=== PATIENT | female | born 1945 | race Caucasian/White ===

== ENCOUNTER 2018-02-20 13:52 | Inpatient (IN) ==
[2018-02-20] MEDS ORDERED: 0.9 % Sodium Chloride 1,000 ML IVC ONE (14:49)
[2018-02-20] MEDS ORDERED: Ondansetron 4 MG/2 ML VIAL IVP ONE (14:49)
--- NOTE | 2018-02-20 14:54 | Emergency Department Note ---
Disposition Clinical Impression: Vomiting and diarrhea, Dehydration Urinary tract infection Qualifiers: Urinary tract infection type: acute cystitis Hematuria presence: with hematuria Qualified Code(s): N30.01 - Acute cystitis with hematuria Disposition: Admitted As Inpatient Condition: Fair Referrals: Nurys Li MD [Primary Care Provider] - Forms: ED Satisfaction Letter, Work/School Release Nausea/Vomiting/Diarrhea HPI - General Chief complaint: ED General Medical Stated complaint: "sick" Time Seen by Provider: 02/20/18 14:18 Source: patient Mode of arrival: private vehicle Limitations: no limitations Nursing Notes Reviewed: Yes Vital Signs Reviewed: Yes - History of Present Illness HPI Narrative: 72-year-old female since for evaluation of vomiting and diarrhea. Patient states her symptoms started 2 days ago. She estimates 4-5 episodes of vomiting. She estimates to watery stools. She states there is no associated abdominal pain. She is unaware of any fever or chills. She states no other complaints of runny nose, sore throat, chest pain, shortness of breath, or urinary symptoms. She denies any recent travel. She denies any recent antibiotics last 3 days. She denies any recent ill contacts. And she cannot recall any food that tasted poorly - Related Data Home Medications Medication Instructions Recorded Confirmed Meloxicam [Mobic] 15 mg PO DAILY 09/07/15 02/20/18 Oxybutynin Chloride [Ditropan Xl] 15 mg PO DAILY 09/07/15 02/20/18 Vitamin B Complex [B Complex] 1 each PO DAILY 09/19/15 02/20/18 Metoprolol [Lopressor] 50 mg PO BID 10/17/15 02/20/18 Aspirin [Lo-Dose Aspirin EC] 81 mg PO DAILY 07/28/16 02/20/18 Furosemide [Lasix] 80 mg PO DAILY 12/31/16 02/20/18 Oxygen 2 l NS HS 03/10/17 02/20/18 Omeprazole [PriLOSEC] 20 mg PO DAILY 06/23/17 02/20/18 Lisinopril [Zestril] 40 mg PO QAM 10/08/17 02/20/18 Previous Rx's Medication Instructions Recorded Albuterol Sulfate [Albuterol 2 puff IH Q4HR PRN #1 inhaler 07/31/16 Inhaler] Potassium Chloride 20 meq PO DAILY #30 tab.er.prt 07/31/16 Anastrozole [Arimidex] 1 mg PO DAILY #90 tablet 05/28/17 Zolpidem [Ambien] 5 mg PO HS PRN #30 tablet 06/23/17 Allergies Allergy/AdvReac Type Severity Reaction Status Date / Time cephalexin [From Keflex] Allergy Rash Verified 02/20/18 14:11 atorvastatin [From Lipitor] AdvReac Muscle Pain Verified 02/20/18 14:11 nifedipine [From Procardia] AdvReac Blurry Verified 02/20/18 14:11 Vision Review of Systems: Constitutional: [Negative for fever and chills.] HENT: [Negative for congestion.] Eyes: [Negative for discharge.] Respiratory: [Negative for shortness of breath.] Cardiovascular: [Negative for chest pain.] Gastrointestinal: See history of present illness Endocrine: [Negative for excessive thirst,urination] Genitourinary: [Negative for dysuria and frequency.] Musculoskeletal: [Negative for myalgias and arthralgias.] Skin: [Negative for rash.] Neurological: [Negative for dizziness, localized weakness and headaches.] Psychiatric/Behavioral: [Negative for nervous/anxious.] All other systems reviewed and are negative. Past Medical History - Past Medical History Attestation: Yes The following information was validated with the patient. 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 . The patient appears , mildly ill but nontoxic. HENT: Head: Normocephalic and atraumatic. Right Ear: External ear normal. Left Ear: External ear normal. Nose: Nose normal. Mouth/Throat: Oropharynx is clear and mucous membranes show mild dehydration Eyes: Conjunctivae and EOM are normal. Pupils are equal, round, and reactive to light. Right eye exhibits [no] discharge. Left eye exhibits [no] discharge. Neck: Trachea is midline, normal range of motion and [phonation normal]. Neck supple. Cardiovascular: [Regular rhythm], S1 normal, S2 normal, normal heart sounds and intact distal pulses. Exam reveals no gallop and no friction rub. No murmur heard. [Capillary refill is brisk.] [Peripheral pulses are 2+] Pulmonary/Chest: Effort [normal] No stridor. [No] tachypnea. [No] respiratory distress. There are [no] decreased breath sounds. [There no wheezes, no rhonchi , or rales.] Abdominal: Soft. Bowel sounds are hyperactive. There exhibits [no] distension and [no] mass. There is no hepatosplenomegaly. There is no localized or generalized tenderness, [no] CVA tenderness. There is [no rigidity, no rebound, no guarding]. Musculoskeletal: Normal range of motion of uninvolved extremities. There exhibits [no edema]. [ ] Neurological: Patient is alert. Patient displays no atrophy and no tremor. No cranial nerve deficit and exhibits normal muscle tone. Coordination normal grossly. Skin: Skin is warm and dry. No erythema. No rash noted. Psychiatric: Patient has a normal mood and affect. Course Course Narrative: Patient was discussed with Dr. Samano, hospitalist, who will accept the patient for admission here at [facility]. Vital Signs Temperature 97.9 F 02/20/18 14:08 Pulse Rate 96 02/20/18 14:08 Respiratory Rate 16 02/20/18 14:08 Blood Pressure 102/58 02/20/18 14:08 O2 Sat by Pulse Oximetry 93 02/20/18 14:08 Temperature 97.9 F 02/20/18 14:08 Pulse Rate 96 02/20/18 14:08 Respiratory Rate 16 02/20/18 14:08 Blood Pressure 102/58 02/20/18 14:08 O2 Sat by Pulse Oximetry 93 02/20/18 14:08 Oxygen Delivery Oxygen Delivery Room Air Nausea/Vomiting/Diarrhea - MDM Narrative Medical decision making narrative: Differential diagnosis includes ACUTE APPENDICITIS, CLOSTRIDIUM DIFFICILE INFECTION, DIVERTICULITIS, TRAVELERS DIARRHEA, BLEEDING STOMACH ULCER, OR EBOLA INFECTION. SEPSIS FROM PYELONEPHRITIS, SEXUALLY TRANSMIITED DISEASES, HEMORHAGGING OVARIAN CYST, OVARIAN-TUBAL ABSCESS, - Lab Data Lab results reviewed: Yes I reviewed the patient's lab results. Result diagrams: 02/20/18 15:10 02/20/18 15:10 Lab Results 02/20/18 02/20/18 02/20/18 Range/Units 14:57 15:10 15:10 WBC 31.1 H* (4.3-11.1) K/mcL RBC 4.34 (3.82-4.97) M/mcL Hgb 12.6 (11.5-15.4) g/dL Hct 38.5 (35.3-44.9) % MCV 88.7 (83.0-100.0) fL MCH 29.0 (28.0-33.3) pg MCHC 32.7 (31.6-35.5) g/dL RDW 14.0 (11.5-14.5) % Plt Count 229 (140-400) K/mcL MPV 11.1 (9.4-12.4) fL Immature Gran % 2.8 (0-4) % Seg Neutrophils % 90.0 % Lymphocytes % 2.1 % Monocytes % 4.7 % Eosinophils % 0.0 % Basophils % 0.4 % Neutrophils # 28.0 H (1.6-8.9) K/mcL Lymphocytes # 0.7 (0.6-4.6) K/mcL Monocytes # 1.5 H (0.0-1.3) K/mcL Eosinophils # 0.0 (0.0-0.6) K/mcL Basophils # 0.1 (0.0-0.2) K/mcL Platelet Estimate Normal (Normal) Sodium 134 L (136-145) mEq/L Potassium 3.9 (3.5-5.1) mEq/L Chloride 96 L (98-107) mEq/L Carbon Dioxide 29 (23-29) mEq/L BUN 35 H (8-23) mg/dL Creatinine 1.93 H (0.60-1.20) mg/dL Est GFR ( Amer) 31 L (> 60) Est GFR (Non-Af Amer) 26 L (> 60) BUN/Creatinine Ratio 18 (6-26) Glucose 149 H (70-105) mg/dL Calculated Osmolality 289 (280-300) Lactic Acid (0.5-2.2) mmol/L Calcium 9.2 (8.6-10.3) mg/dL Total Bilirubin 1.0 (0.3-1.0) mg/dL AST 27 (13-39) Units/L ALT 11 (7-52) Units/L Alkaline Phosphatase 70 (34-104) Units/L Serum Total Protein 6.3 L (6.4-8.9) g/dL Albumin 3.1 L (3.5-5.7) g/dL Globulin 3.2 (2.4-3.5) g/dL Albumin/Globulin Ratio 1.0 L (1.1-2.2) Urine Color Yellow (Yellow) Urine Clarity Slightly Cloudy A (Clear) Urine pH 5.0 (5.0-8.0) pH Units Ur Specific [place] 1.025 (1.010-1.025) Urine Protein 100 H (Neg-Trace) mg/dL Urine Glucose (UA) Normal (Normal) mg/dL Urine Ketones Trace H (Negative) mg/dL Urine Blood Large H (Negative) Urine Nitrite Negative (Negative) Urine Bilirubin Small H (Negative) Urine Urobilinogen Normal (Normal) mg/dL Ur Leukocyte Esterase Moderate H (Negative) Urine Microscopic RBC TNTC H (0-3) per hpf Urine Microscopic WBC TNTC H (0-3) per hpf Amorphous Sediment Moderate H (Few) Urine Bacteria Many H (None-Few) per hpf Ur Culture Indicated? YES A (NO) 02/20/18 Range/Units 16:18 WBC (4.3-11.1) K/mcL RBC (3.82-4.97) M/mcL Hgb (11.5-15.4) g/dL Hct (35.3-44.9) % MCV (83.0-100.0) fL MCH (28.0-33.3) pg MCHC (31.6-35.5) g/dL RDW (11.5-14.5) % Plt Count (140-400) K/mcL MPV (9.4-12.4) fL Immature Gran % (0-4) % Seg Neutrophils % % Lymphocytes % % Monocytes % % Eosinophils % % Basophils % % Neutrophils # (1.6-8.9) K/mcL Lymphocytes # (0.6-4.6) K/mcL Monocytes # (0.0-1.3) K/mcL Eosinophils # (0.0-0.6) K/mcL Basophils # (0.0-0.2) K/mcL Platelet Estimate (Normal) Sodium (136-145) mEq/L Potassium (3.5-5.1) mEq/L Chloride (98-107) mEq/L Carbon Dioxide (23-29) mEq/L BUN (8-23) mg/dL Creatinine (0.60-1.20) mg/dL Est GFR ( Amer) (> 60) Est GFR (Non-Af Amer) (> 60) BUN/Creatinine Ratio (6-26) Glucose (70-105) mg/dL Calculated Osmolality (280-300) Lactic Acid 2.0 (0.5-2.2) mmol/L Calcium (8.6-10.3) mg/dL Total Bilirubin (0.3-1.0) mg/dL AST (13-39) Units/L ALT (7-52) Units/L Alkaline Phosphatase (34-104) Units/L Serum Total Protein (6.4-8.9) g/dL Albumin (3.5-5.7) g/dL Globulin (2.4-3.5) g/dL Albumin/Globulin Ratio (1.1-2.2) Urine Color (Yellow) Urine Clarity (Clear) Urine pH (5.0-8.0) pH Units Ur Specific [place] (1.010-1.025) Urine Protein (Neg-Trace) mg/dL Urine Glucose (UA) (Normal) mg/dL Urine Ketones (Negative) mg/dL Urine Blood (Negative) Urine Nitrite (Negative) Urine Bilirubin (Negative) Urine Urobilinogen (Normal) mg/dL Ur Leukocyte Esterase (Negative) Urine Microscopic RBC (0-3) per hpf Urine Microscopic WBC (0-3) per hpf Amorphous Sediment (Few) Urine Bacteria (None-Few) per hpf Ur Culture Indicated? (NO) - Radiology Data Radiology results reviewed: Yes I reviewed the patient's radiology results. XR/XR acute abdominal series IMPRESSION: No acute cardiopulmonary disease. Mild cardiomegaly and central vascular congestion with no overt failure. Nonspecific abdominal bowel gas pattern.
[2018-02-20 15:09] LABS: Bilirubin,Urine Small (Negative); Blood,Urine Large (Negative); Clarity,Urine Slightly Cloudy (Clear); Color,Urine Yellow (Yellow); Glucose,Urine (UA) Normal (Normal); Ketones,Urine Trace mg/dL (Negative); Leukocyte Esterase,Urine Moderate (Negative); Nitrite,Urine Negative (Negative); Protein,Urine 100 mg/dL (Neg-Trace); Specific Gravity,Urine 1.025 (1.010-1.025); Urobilinogen,Urine Normal (Normal)
[2018-02-20 15:16] LABS: Basophils # 0.1 K/mcL (0.0-0.2); Basophils % 0.4 %; Hematocrit 38.5 % (35.3-44.9); Hemoglobin 12.6 g/dL (11.5-15.4); Immature Granulocytes % 2.8 % (0-4); Lymphocytes % 2.1 %; Mean Corpuscular HGB Conc 32.7 g/dL (31.6-35.5); Mean Corpuscular Volume 88.7 fL (83.0-100.0); Mean Platelet Volume 11.1 fL (9.4-12.4); Monocytes # 1.5 K/mcL (0.0-1.3); Monocytes % 4.7 %; Platelet Count 229 K/mcL (140-400); Red Blood Count 4.34 M/mcL (3.82-4.97)
[2018-02-20 15:16] LABS: Amorphous Sediment,Urine Moderate (Few); Bacteria,Urine Many per hpf (None-Few); RBC,Urine TNTC per hpf (0-3); WBC,Urine TNTC per hpf (0-3)
[2018-02-20 15:33] LABS: Lymphocytes # 0.7 K/mcL (0.6-4.6)
[2018-02-20 15:34] LABS: Platelet Estimate Normal (Normal)
[2018-02-20 15:36] LABS: Albumin 3.1 g/dL (3.5-5.7); Calcium 9.2 mg/dL (8.6-10.3); Globulin 3.2 g/dL (2.4-3.5); Potassium 3.9 mEq/L (3.5-5.1); Total Protein 6.3 g/dL (6.4-8.9)
[2018-02-20] MEDS ORDERED: MetroNIDAZOLE 500 MG/100 ML 500 MG/100 ML BAG IVPB ONE (15:54)
[2018-02-20 17:09] LABS: Amylase < 10 Units/L (29-103); Lipase 5 Units/L (11-82)
[2018-02-20] MEDS ORDERED: Ondansetron 4 MG/2 ML VIAL IVP PRN (17:24)
[2018-02-20] MEDS ORDERED: 0.9 % Sodium Chloride 1,000 ML IVC SCH (17:30)
--- NOTE | 2018-02-20 20:22 | Internal Med History&Physical ---
Date of Encounter: 02/20/18 Time of Encounter: 20:27 Assessment and Plan (1) Urinary tract infection Current visit: Yes Status: Acute We will rehydrate her, monitor clinically, treat empirically with ciprofloxacin and await culture and sensitivity results. She will be admitted observation status and hopefully with improvement she may be discharged quickly. Addendum: I am concerned about her change in mental status and tachypnea. Given her left basilar rales and tachypnea, I am going to repeat a chest x-ray. If she continues with mental status changes, we may need to consider transferring to a more advanced level of care. Qualifiers: Urinary tract infection type: acute cystitis Hematuria presence: with hematuria Qualified Code(s): N30.01 - Acute cystitis with hematuria (2) Hypertension Current visit: No Status: Acute We will continue home regimen as indicated and watch. Qualifiers: Hypertension type: essential hypertension Qualified Code(s): I10 - Essential (primary) hypertension (3) GERD (gastroesophageal reflux disease) Current visit: No Status: Acute Clinically stable. Qualifiers: Esophagitis presence: esophagitis presence not specified Qualified Code(s) : K21.9 - Gastro-esophageal reflux disease without esophagitis (4) Diet-controlled diabetes mellitus Current visit: No Status: Acute Will control hyperglycemia with sliding scale insulin and follow. (5) Vomiting and diarrhea Current visit: Yes Status: Acute As above, will rehydrate and follow clinically. Could be related to UTI or could be acute gastroenteritis or other etiology. (6) Dehydration Current visit: Yes Status: Acute As above, will rehydrate and follow. (7) Decreased activity tolerance Current visit: No Status: Chronic (8) History of cancer of left breast Current visit: No Status: Chronic (9) Azotemia Current visit: Yes Status: Acute I am unsure as to the chronicity so will follow with rehydration. (10) Pulmonary hypertension Current visit: No Status: Chronic Probably related to sleep apnea. (11) Sleep apnea Current visit: No Status: Suspected Noncompliant with CPAP. She will be maintained on oxygen, for now, and we will carefully monitor her oxygen. Qualifiers: Sleep apnea type: unspecified type Qualified Code(s): G47.30 - Sleep apnea , unspecified Internal Medicine - H&P: HPI Chief complaint: Nausea vomiting and diarrhea. Admitted From: Home Plans for Post Hospital Care: Home History of present illness: Ms. Singh is a 72 year old female with a 2 day history of vomiting and diarrhea. She has had emesis about 5 times. She has had 2 episodes of diarrhea , as well. There is no fever chills or sweats. She has had no abdominal pain or any changes in her bowel color and no coffee-ground emesis or hematemesis. She states that she is currently still hot.. She has not been exposed to anyone who is ill with similar symptoms nor antibiotics. History was reviewed and she was very brief to answer. She is more interested in trying to sit up because she is hot and needing to set up. She states that she does have sleep apnea but she does not tolerate CPAP and "it does not help, anyway. " She desaturated to 88% upon arrival to the floor, on 1 L of oxygen by nasal cannula. This was increased at 2 L/m. She denies urinary symptoms but has had decreased urinary output. Past Med Surg Social Fam HX - Past Medical History Medical history: cancer, diabetes, GERD, hyperlipidemia, hypertension, kidney stones, other Psychiatric history: no psych history - Past Surgical History Surgical History: breast surgery, cholecystectomy, ureteral stent - Social History Smoking Status: Never smoker Smokeless Tobacco Status: No Alcohol use: none Drug use: none - Family History Father Living Status: Hx Family Cancer: Yes (pancreatic) Mother Living Status: Hx Family Cancer: Yes (Thyroid cancer) Hx Family Neuromuscular Disorders: Yes (CVA) Hx Family Neurologic Disorders: Yes (CVA) Internal Medicine - H&P: Meds Meloxicam [Mobic] 15 mg PO DAILY 09/07/15 [History] Oxybutynin Chloride [Ditropan Xl] 15 mg PO DAILY 09/07/15 [History] Vitamin B Complex [B Complex] 1 each PO DAILY 09/19/15 [History] Metoprolol [Lopressor] 50 mg PO BID 10/17/15 [History] Aspirin [Lo-Dose Aspirin EC] 81 mg PO DAILY 07/28/16 [History] Albuterol Sulfate [Albuterol Inhaler] 2 puff IH Q4HR PRN #1 inhaler 07/31/16 [Rx ] Potassium Chloride 20 meq PO DAILY #30 tab.er.prt 07/31/16 [Rx] Furosemide [Lasix] 80 mg PO DAILY 12/31/16 [History] Oxygen 2 l NS HS 03/10/17 [History] Anastrozole [Arimidex] 1 mg PO DAILY #90 tablet 05/28/17 [Rx] Omeprazole [PriLOSEC] 20 mg PO DAILY 06/23/17 [History] Zolpidem [Ambien] 5 mg PO HS PRN #30 tablet 06/23/17 [Rx] Lisinopril [Zestril] 40 mg PO QAM 10/08/17 [History] 3 Allergy/AdvReac Type Severity Reaction Status Date / Time cephalexin [From Keflex] Allergy Rash Verified 02/20/18 14:11 atorvastatin [From Lipitor] AdvReac Muscle Pain Verified 02/20/18 14:11 nifedipine [From Procardia] AdvReac Blurry Verified 02/20/18 14:11 Vision All Systems PM: A 10-system review of systems was performed and is negative for pertinent findings except as documented above in the HPI. - Constitutional Vitals: Temp Pulse Resp BP Pulse Ox 98.4 F 102 18 145/62 94 02/20/18 18:21 02/20/18 18:21 02/20/18 18:21 02/20/18 18:21 02/20/18 18:21 Exam: Examination: (Except as mentioned above): General: In no apparent distress, alert and oriented 3. However, she seems uncomfortable and is having some restlessness. On confrontation, she demonstrates asterixis. She is on oxygen at 2 L. She is incontinent of urine. Head: Atraumatic and normocephalic. Eyes: Extraocular muscles are intact, pupils equal round and reactive to light and accommodation. Sclerae anicteric. Ears: External ears are normal to inspection and hearing is grossly normal. Nose: Patent without lesion noted. Mouth: No intraoral lesions seen. Dentition is unremarkable. Neck: Supple with trachea midline. There is no thyromegaly or adenopathy and carotids are 2+ without bruit heard. Respiratory: No use of accessory muscles. She has tachypnea and is noted to have rales at the left base. These were not noted on previous exam.. Normal airflow. Cardiovascular: Regular rate and rhythm without murmur appreciated. Abdomen: Bowel sounds are normal. No hepatosplenomegaly masses or tenderness. Obese and therefore difficult to palpate deeply. Extremities: No cyanosis clubbing or edema. Neurological: A and O 3. See comments above. Cranial nerves II through XII are intact. No focal deficits and no abnormal movements or postures. Skin: Warm and non-diaphoretic with no lesions noted. Rather marked fungal intertrigo, bilaterally. Breasts, pelvic and rectal: Not examined. Internal Med - H&P Results - Labs CBC & Chem 7: 02/20/18 15:10 02/20/18 15:10
[2018-02-20] MEDS ORDERED: NON-FORMULARY MEDICATION 1 EACH EACH (Oxygen [Oxygen] 2 L) NS SCH (21:00)
[2018-02-20 21:42] LABS: Hematocrit 38.2 % (35.3-44.9); Hemoglobin 12.5 g/dL (11.5-15.4); Mean Corpuscular HGB Conc 32.7 g/dL (31.6-35.5); Mean Corpuscular Hemoglobin 29.3 pg (28.0-33.3); Mean Corpuscular Volume 89.7 fL (83.0-100.0); Platelet Count 211 K/mcL (140-400); Red Blood Count 4.26 M/mcL (3.82-4.97); Red Cell Distribution Width 14.2 % (11.5-14.5)
[2018-02-20 21:53] LABS: Neutrophils # 29.3 K/mcL (1.6-8.9); Platelet Estimate Normal (Normal)
[2018-02-20 22:08] LABS: Calcium 8.6 mg/dL (8.6-10.3); Potassium 3.8 mEq/L (3.5-5.1)
[2018-02-20] MEDS: metroNIDAZOLE 500 MG TABLET PO SCH (23:39)
[2018-02-20] MEDS: Nystatin POWDER 30 GM BOTTLE TP SCH (23:40)
[2018-02-20] MEDS: *HR* Enoxaparin 40 MG/0.4 ML SYRINGE SQ SCH (23:40)
[2018-02-21 01:19] LABS: Lymphocytes # 0.1 K/mcL (0.6-4.6); Lymphocytes % 0.4 %
[2018-02-21] MEDS ORDERED: 0.9 % Sodium Chloride 1,000 ML ONE (02:16)
[2018-02-21] MEDS: 0.9 % Sodium Chloride 1,000 ML IVC SCH ×2 (03:12→13:05)
[2018-02-21] MEDS ORDERED: *HR* Enoxaparin 30 MG/0.3 ML SYRINGE SQ SCH (07:00)
[2018-02-21 08:56] LABS: Basophils # 0.1 K/mcL (0.0-0.2); Basophils % 0.3 %; Hematocrit 38.3 % (35.3-44.9); Immature Granulocytes % 2.1 % (0-4); Lymphocytes # 0.5 K/mcL (0.6-4.6); Lymphocytes % 1.6 %; Mean Corpuscular HGB Conc 31.3 g/dL (31.6-35.5); Mean Corpuscular Hemoglobin 29.2 pg (28.0-33.3); Mean Corpuscular Volume 93.2 fL (83.0-100.0); Mean Platelet Volume 11.6 fL (9.4-12.4); Monocytes # 1.3 K/mcL (0.0-1.3); Monocytes % 4.1 %; Neutrophils # 28.3 K/mcL (1.6-8.9); Platelet Count 204 K/mcL (140-400); Red Blood Count 4.11 M/mcL (3.82-4.97); Red Cell Distribution Width 14.5 % (11.5-14.5); Segmented Neutrophils % 91.9 %
[2018-02-21] MEDS ORDERED: Aspirin Enteric Coated 81 MG Tablet PO SCH (09:00)
[2018-02-21] MEDS ORDERED: Anastrozole 1 MG TABLET PO SCH (09:00)
[2018-02-21] MEDS ORDERED: Vitamin B Complex/Vit C/Vit E 1 EACH TABLET PO SCH (09:00)
[2018-02-21 09:09] LABS: Platelet Estimate Normal (Normal)
[2018-02-21 09:16] LABS: Calcium 8.4 mg/dL (8.6-10.3); Potassium 4.4 mEq/L (3.5-5.1)
[2018-02-21] MEDS: *HR* Enoxaparin 40 MG/0.4 ML SYRINGE SQ SCH (11:02)
[2018-02-21] MEDS: Nystatin POWDER 30 GM BOTTLE TP SCH ×3 (11:50→22:06)
[2018-02-21] MEDS: metroNIDAZOLE 500 MG TABLET PO SCH ×3 (11:50→22:06)
[2018-02-21] MEDS: Lisinopril 20 MG TABLET PO SCH ×2 (11:56→13:05)
[2018-02-21] MEDS ORDERED: Acetaminophen 325 MG TABLET PO PRN (12:38)
--- NOTE | 2018-02-21 14:14 | Internal Med Progress Note ---
Date of Encounter: 02/21/18 Time of Encounter: 14:13 - Assessment and plan (1) Urinary tract infection Current Visit: Yes Status: Acute Assessment and plan: Will try to broaden antibiotic spectrum given her positive blood cultures. I spoke with pharmacy at length. Bactrim and Macrodantin are not indicated given her renal insufficiency. Pharmacy is to call me back with suggestions regarding management. Qualifiers: Urinary tract infection type: acute cystitis Hematuria presence: with hematuria Qualified Code(s): N30.01 - Acute cystitis with hematuria (2) Hypertension Current Visit: No Status: Acute Assessment and plan: Stable. Qualifiers: Hypertension type: essential hypertension Qualified Code(s): I10 - Essential (primary) hypertension (3) GERD (gastroesophageal reflux disease) Current Visit: No Status: Acute Assessment and plan: Clinically stable. Qualifiers: Esophagitis presence: esophagitis presence not specified Qualified Code(s) : K21.9 - Gastro-esophageal reflux disease without esophagitis (4) Diet-controlled diabetes mellitus Current Visit: No Status: Acute Assessment and plan: We will continue to follow. (5) Vomiting and diarrhea Current Visit: Yes Status: Acute Assessment and plan: Improved. (6) Dehydration Current Visit: Yes Status: Acute Assessment and plan: Seems to have improved. She has worsening renal function, however, so we will continue fluids as long as she does not have congestive heart failure eye x- ray. Have requested a follow-up x-ray to compare. Should she have vascular congestion, will resume IV Lasix and follow clinically. (7) Decreased activity tolerance Current Visit: No Status: Chronic Assessment and plan: I believe this is related to a urinary tract infection. (8) History of cancer of left breast Current Visit: No Status: Chronic Assessment and plan: Not currently treating. (9) Azotemia Current Visit: Yes Status: Acute Assessment and plan: Worsening. We will follow regularly. (10) Pulmonary hypertension Current Visit: No Status: Chronic Assessment and plan: I spoke at length with and about her need for CPAP and treatment for this. (11) Sleep apnea Current Visit: No Status: Suspected Assessment and plan: See above. Qualifiers: Sleep apnea type: unspecified type Qualified Code(s): G47.30 - Sleep apnea , unspecified - Time Spent With Patient Greater than 35 minutes - Subjective Interval history: Patient states that she has no issues. However, she answers in non-sequiturs and family states that she is clearly "not herself." She denies abdominal pain, shortness of breath, other discomfort. She is tachypneic in does not acknowledge this. Nursing reports that her blood cultures were positive in the emergency room for one bottle of Escherichia coli and sensitivities will not be available for 2 days. I explained the clinical situation, some suggestions of sepsis, need for careful antibiotic and monitor for mental status changes to family including and daughters as well as some grandchildren. notes that she had similar mental status changes last fall when she had an infection but she was not "this bad." Nursing notes that her Honobia score is 3. - Constitutional Vitals: Temp Pulse Resp BP Pulse Ox 101.7 F H 84 20 106/52 97 02/21/18 12:34 02/21/18 12:34 02/21/18 12:34 02/21/18 12:34 02/21/18 12:34 Exam: Examination: (Except as mentioned above): General: In no apparent distress. Alert and oriented 3. Nondiaphoretic. Head: Atraumatic and normocephalic. Respiratory: No use of accessory muscles, currently, but nursing notes that she was, earlier. She is moderately tachypneic. She has left basilar rales. Normal airflow. Cardiovascular: Regular rate and rhythm without murmur appreciated. She has a heart rate of about 100 and she was more tachycardic earlier, about 110, per record. Abdomen: Bowel sounds are normal. No hepatosplenomegaly mass or tenderness appreciated. Obese and therefore difficult to palpate deeply. Extremities: No cyanosis clubbing or edema. Skin: Warm and non-diaphoretic with no new lesions noted. Internal Medicine: Result - Labs CBC & Chem 7: 02/21/18 08:45 02/21/18 08:45 Labs: Short CBC 02/20/18 02/21/18 Range/Units 21:30 08:45 WBC 29.9 H 30.8 H* (4.3-11.1) K/mcL Hgb 12.5 12.0 (11.5-15.4) g/dL Hct 38.2 38.3 (35.3-44.9) % Plt Count 211 204 (140-400) K/mcL Neutrophils # 29.3 H 28.3 H (1.6-8.9) K/mcL BMP 02/20/18 02/21/18 21:30 08:45 Sodium 134 L 133 L Potassium 3.8 4.4 Chloride 97 L 98 Carbon Dioxide 28 27 BUN 38 H 45 H Creatinine 2.03 H 2.65 H Glucose 135 H 149 H Calcium 8.6 8.4 L - Impressions Impressions Chest X-Ray 02/20/18 21:07 IMPRESSION: 1. Findings suggestive of cardiomegaly and pulmonary venous congestion. D/ / 02/20/2018 22:11:22 Steve Denny MD / romana Interpreting Provider: Steve Denny MD Consult Discharge Plan - Plan Referrals: Nurys Li MD [Primary Care Provider] -
[2018-02-21 14:53] LABS: Acinetobacter baumannii by PCR Not Detected (Not Detect); Candida albicans by PCR Not Detected (Not Detect); Candida glabrata by PCR Not Detected (Not Detect); Candida krusei by PCR Not Detected (Not Detect); Candida parapsilosis by PCR Not Detected (Not Detect); Candida tropicalis by PCR Not Detected (Not Detect); Enterococcus by PCR Not Detected (Not Detect); Escherichia coli by PCR ***DETECTED*** (Not Detect); Klebsiella oxytoca by PCR Not Detected (Not Detect); Klebsiella pneumoniae by PCR Not Detected (Not Detect); Pseudomonas aeruginosa by PCR Not Detected (Not Detect); Serratia marcescens by PCR Not Detected (Not Detect); Staphylococcus aureus by PCR Not Detected (Not Detect); Streptococcus agalactiae(B)PCR Not Detected (Not Detect); Streptococcus by PCR Not Detected (Not Detect); Streptococcus pneumoniae PCR Not Detected (Not Detect); Streptococcus pyogenes (A) PCR Not Detected (Not Detect); blaKPC Carbapenem-Resist Gene Not Detected (Not Detect); mecA Methicillin-Resist Gene Not Detected (Not Detect); vanA/B Vancomycin-Resist Genes Not Detected (Not Detect)
[2018-02-21] MEDS ORDERED: Levofloxacin 500 MG/100 ML 500 MG/100 ML BAG IVPB SCH ×2 (17:00→17:30)
[2018-02-21] MEDS ORDERED: Amoxicillin/Clavulanate 500 MG TABLET PO SCH (17:00)
[2018-02-21] MEDS ORDERED: Furosemide 40 MG/4 ML VIAL IVP SCH ×2 (17:46→21:00)
[2018-02-21] MEDS ORDERED: Acetaminophen 650 MG RECTAL SUPP RC PRN (21:49)
--- NOTE | 2018-02-22 00:45 | Internal Med Progress Note ---
<Linda George - Last Filed: 02/22/18 02:12> Date of Encounter: 02/22/18 Time of Encounter: 00:15 (stayed with pt for an hour) - Assessment and plan (1) Altered mental status Status: Acute Assessment and plan: plan to transfer to r/o worsening sepsis tia vs cva ABG to r/o co2 retention CT scan to r/o cva ct grossly negative and ABG shows respiratory acidosis Spoke with Dr Sy at [facility] and declined admission and recommended transfer to another facility due to staffing spoke with family and the requested [facility] Critical care Note 35 mins due to high probability of life threatening deterioration due to underlying illness and arranging transfer to another health care facility and talking with accepting physicians This excludes separately reportable procedures pt given fluid bolus and bp improving and with bi pap pt appears to be resting more comfortably awaiting repeat gas when reviewed there still appear to be mixed and family is asking that we do not intubate they feel that she is more alert and responsive. Qualifiers: Altered mental status type: unspecified Qualified Code(s): R41.82 - Altered mental status, unspecified - Time Spent With Patient Greater than 35 minutes (pt aletered mental status talking to [facility] and managing abnormal labs) - Subjective Interval history: altered mental status - Constitutional Vitals: Temp Pulse Resp BP Pulse Ox 99.5 F 79 40 94/52 94 02/21/18 23:58 02/21/18 23:58 02/21/18 23:58 02/21/18 23:58 02/21/18 23:58 General appearance: Present: A&O X 0, mild distress - Head Head exam: Present: atraumatic, normal inspection, normocephalic - Eye Eye exam: Present: EOMI, normal appearance, PERRL Pupils: Present: PERRL - ENT ENT exam: Present: mucous membranes moist, normal exam, normal external ear exam , normal oropharynx, TM's normal bilaterally - Neck Neck exam general surgery: Present: full ROM, normal inspection. Absent: lymphadenopathy, nuchal rigidity - Respiratory Respiratory exam: Present: decreased breath sounds, prolonged expiratory phase - Cardiovascular Cardiovascular exam: Present: RRR - GI/Abdominal GI/Abdominal exam: Present: diminished bowel sounds, distended, soft, no peritoneal signs. Absent: mass, rebound - Extremities Exam Extremities exam: Present: normal capillary refill, normal inspection ( withdrawls to pain), pedal edema (mild), warm, radial pulses palpable and symmetrical. Absent: tenderness - Back Exam Back exam: Absent: muscle spasm - Neurological Exam Neurological exam: Present: alert, altered, CN II-XII intact Additional comments: withdrawls to pain - Psychiatric Psychiatric exam: Present: flat affect - Skin Skin exam: Present: dry, normal color, warm Internal Medicine: Result - Labs CBC & Chem 7: 02/21/18 08:45 02/21/18 08:45 - ABG Interpretation Interpretation: ABG interpreted by me ABG results: repeat gas 7.19 PAco2 66.7 PAo2 54 25,6 Hco3 sats 78.7 still appears to be mixed venous origin Interpretation: respiratory acidosis, venous blood gas (mixed) Additional comments: Ph 7.1 PaCO2 70 PaO2 40 HCO3 23 sats 66% suspect mixed due to sat not matching pulse ox - Pulse Oximetry Interpretation Digit-Finger Pulse Oximetry Readin (on bipap 12/8) Actions taken: placed on BiPAP - EKG Interpretation EKG Interpreted by Myself: Yes (sinus arrthmia occasiional P wave notes possible afib) Rate: tachycardia - Diagnostic Studies CT scan - head Status: image reviewed by me, pending Additional comments: No gross infarct or bleed noted on ct interpreted by myself without the assistance of radiology chronic changes no acute findings per radiology Consult Discharge Plan - Plan Referrals: Nurys Li MD [Primary Care Provider] - <Torsten Samano - Last Filed: 02/24/18 14:13> Date of Encounter: 02/24/18 - Assessment and plan (1) Urinary tract infection Status: Acute Qualifiers: Urinary tract infection type: acute cystitis Hematuria presence: with hematuria Qualified Code(s): N30.01 - Acute cystitis with hematuria (2) Hypertension Status: Acute Qualifiers: Hypertension type: essential hypertension Qualified Code(s): I10 - Essential (primary) hypertension (3) GERD (gastroesophageal reflux disease) Status: Acute Qualifiers: Esophagitis presence: esophagitis presence not specified Qualified Code(s) : K21.9 - Gastro-esophageal reflux disease without esophagitis (4) Diet-controlled diabetes mellitus Status: Acute (5) Vomiting and diarrhea Status: Acute (6) Dehydration Status: Acute (7) Decreased activity tolerance Status: Chronic (8) History of cancer of left breast Status: Chronic (9) Azotemia Status: Acute (10) Pulmonary hypertension Status: Chronic (11) Sleep apnea Status: Suspected Qualifiers: Sleep apnea type: unspecified type Qualified Code(s): G47.30 - Sleep apnea , unspecified - Constitutional Vitals: Temp Pulse Resp BP Pulse Ox 99.1 F 121 34 96/58 97 02/22/18 03:24 02/22/18 03:24 02/22/18 03:24 02/22/18 03:24 02/22/18 03:24 Internal Medicine: Result - Labs CBC & Chem 7: 02/21/18 08:45 02/21/18 08:45 - ABG Interpretation ABG results: ABG ABG pH 7.19 pH Units (7.32-7.45) L* 02/22/18 02:25 ABG pCO2 67 mmHg (35-45) H 02/22/18 02:25 ABG pO2 54 mmHg (85-104) L 02/22/18 02:25 ABG O2 Saturation 79 % (95-98) L 02/22/18 02:25
[2018-02-22 01:06] LABS: ABG Base Excess -2 mEq/L (-2 to 3); ABG HCO3 28 mEq/L (21-27); ABG Oxygen Saturation 66 % (95-98); ABG PCO2 77 mmHg (35-45); ABG PH 7.17 pH Units (7.32-7.45); ABG PO2 44 mmHg (85-104); ABG TCO2 31 mEq/L (20-26)
[2018-02-22] MEDS ORDERED: 0.9 % Sodium Chloride 1,000 ML IVC ONE (01:30)
[2018-02-22 02:34] LABS: ABG Base Excess -4 mEq/L (-2 to 3); ABG HCO3 26 mEq/L (21-27); ABG Oxygen Saturation 79 % (95-98); ABG PCO2 67 mmHg (35-45); ABG PH 7.19 pH Units (7.32-7.45); ABG PO2 54 mmHg (85-104); ABG TCO2 28 mEq/L (20-26)
[2018-02-22] MEDS ORDERED: 0.9 % Sodium Chloride 500 ML IVC ONE (02:38)
[2018-02-22] MEDS ORDERED: 0.9 % Sodium Chloride 500 ML ONE (02:41)
[2018-02-22 03:25] VITALS: BP 96/58
[2018-02-22] MEDS ORDERED: *HR* Enoxaparin 30 MG/0.3 ML SYRINGE SQ SCH (09:00)
--- NOTE | 2018-02-23 12:39 | Electrocardiograph Report ---
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
[2018-02-23 19:32] LABS: Acinetobacter baumannii by PCR Not Detected (Not Detect); Candida albicans by PCR Not Detected (Not Detect); Candida glabrata by PCR Not Detected (Not Detect); Candida krusei by PCR Not Detected (Not Detect); Candida parapsilosis by PCR Not Detected (Not Detect); Candida tropicalis by PCR Not Detected (Not Detect); Enterococcus by PCR Not Detected (Not Detect); Escherichia coli by PCR ***DETECTED*** (Not Detect); Klebsiella oxytoca by PCR Not Detected (Not Detect); Klebsiella pneumoniae by PCR Not Detected (Not Detect); Pseudomonas aeruginosa by PCR Not Detected (Not Detect); Serratia marcescens by PCR Not Detected (Not Detect); Staphylococcus aureus by PCR Not Detected (Not Detect); Streptococcus agalactiae(B)PCR Not Detected (Not Detect); Streptococcus by PCR Not Detected (Not Detect); Streptococcus pneumoniae PCR Not Detected (Not Detect); Streptococcus pyogenes (A) PCR Not Detected (Not Detect); blaKPC Carbapenem-Resist Gene Not Detected (Not Detect); mecA Methicillin-Resist Gene Not Detected (Not Detect); vanA/B Vancomycin-Resist Genes Not Detected (Not Detect)
--- NOTE | 2018-02-24 14:16 | Discharge Summary ---
Date of Encounter: 02/22/18 Time of Encounter: 04:00 - Discharge Diagnosis (1) Urinary tract infection Priority: Primary Status: Acute Qualifiers: Urinary tract infection type: acute cystitis Hematuria presence: with hematuria Qualified Code(s): N30.01 - Acute cystitis with hematuria (2) Hypertension Priority: Secondary Status: Acute Qualifiers: Hypertension type: essential hypertension Qualified Code(s): I10 - Essential (primary) hypertension (3) GERD (gastroesophageal reflux disease) Priority: Secondary Status: Acute Qualifiers: Esophagitis presence: esophagitis presence not specified Qualified Code(s) : K21.9 - Gastro-esophageal reflux disease without esophagitis (4) Diet-controlled diabetes mellitus Priority: Secondary Status: Acute (5) Vomiting and diarrhea Priority: Secondary Status: Acute (6) Dehydration Priority: Secondary Status: Acute (7) Decreased activity tolerance Priority: Secondary Status: Chronic (8) History of cancer of left breast Priority: Secondary Status: Chronic (9) Azotemia Priority: Secondary Status: Acute (10) Pulmonary hypertension Priority: Secondary Status: Chronic (11) Sleep apnea Priority: Secondary Status: Suspected Qualifiers: Sleep apnea type: unspecified type Qualified Code(s): G47.30 - Sleep apnea , unspecified Hospital course: For computer reasons, this note is a late entry. Patient was seen by Dr. George on the date of discharge, see her note. This note was attempted yesterday but for computer issues, was not saved. Ms. Singh is a 72 year old female who presented with mental status changes. She had abdominal and flank pain, was found to have a urinary tract infection with dehydration and acute on chronic renal injury; she was admitted to the [facility] hospital for IV hydration and antibiotics. Her vital signs were initially stable but on the evening prior to discharge, her blood pressure became mildly hypotensive. On her first full hospital day, I discussed her changes in clarity and possible urosepsis with and daughter, agreeing that she would be transferred if she showed any further signs of sepsis. She had further decrease in clarity of thought and responsiveness and seemed to be responding poorly to therapy for this reason was evaluated by our emergency room physician who agreed that she needed to be transfered to a hospital with a greater level of care. She was transferred at approximately 4:00 on the morning of 02/22/2018. Discharge discussed with: family - Time Spent with Patient Total time spent providing and/or coordinating discharge services: Greater than 30 minutes - Discharge Medications Home Medications: Meloxicam [Mobic] 15 mg PO DAILY 09/07/15 [History] Oxybutynin Chloride [Ditropan Xl] 15 mg PO DAILY 09/07/15 [History] Vitamin B Complex [B Complex] 1 each PO DAILY 09/19/15 [History] Metoprolol [Lopressor] 50 mg PO BID 10/17/15 [History] Aspirin [Lo-Dose Aspirin EC] 81 mg PO DAILY 07/28/16 [History] Albuterol Sulfate [Albuterol Inhaler] 2 puff IH Q4HR PRN #1 inhaler 07/31/16 [Rx ] Potassium Chloride 20 meq PO DAILY #30 tab.er.prt 07/31/16 [Rx] Furosemide [Lasix] 80 mg PO DAILY 12/31/16 [History] Oxygen 2 l NS HS 03/10/17 [History] Anastrozole [Arimidex] 1 mg PO DAILY #90 tablet 05/28/17 [Rx] Omeprazole [PriLOSEC] 20 mg PO DAILY 06/23/17 [History] Zolpidem [Ambien] 5 mg PO HS PRN #30 tablet 06/23/17 [Rx] Lisinopril [Zestril] 40 mg PO QAM 10/08/17 [History] Allergies/Adverse Reactions: 3 Allergy/AdvReac Type Severity Reaction Status Date / Time cephalexin [From Keflex] Allergy Rash Verified 02/20/18 14:11 atorvastatin [From Lipitor] AdvReac Muscle Pain Verified 02/20/18 14:11 nifedipine [From Procardia] AdvReac Blurry Verified 02/20/18 14:11 Vision Date of admission: 02/21/18 18:42 Primary care physician: Nurys Li, Discharging clinician: Linda George Anticipated date of discharge: 02/22/18 - Constitutional Vitals: Temp Pulse Resp BP Pulse Ox 99.1 F 121 34 96/58 97 02/22/18 03:24 02/22/18 03:24 02/22/18 03:24 02/22/18 03:24 02/22/18 03:24 General appearance: Present: A&O X 0, mild distress Exam: See Dr. George's note, this date. - Patient Status Disposition: Transfer Short-Term Hosp Condition: Undetermined - Discharge Instructions Follow Up With: Nurys Li MD [Primary Care Provider] -
== END 2018-02-22 04:34 | disposition short-term general hospital (02) | DRG 872 ==
LOC: EMEROOGRE 13:52 → INPGRE 13:52

== ENCOUNTER 2018-11-19 11:37 | Inpatient (IN) ==
[2018-11-19] MEDS ORDERED: 0.9 % Sodium Chloride 1,000 ML IVC ONE (12:15)
[2018-11-19] MEDS ORDERED: Levofloxacin 750 MG/150 ML 750 MG/150 ML BAG IVPB ONE (12:15)
[2018-11-19] MEDS ORDERED: Ipratropium/Albuterol Neb 3 ML IH ONE ×2 (12:17→12:56)
[2018-11-19] MEDS ORDERED: Ondansetron 4 MG/2 ML VIAL IVP ONE (12:18)
--- NOTE | 2018-11-19 12:20 | Emergency Department Note ---
Disposition Clinical Impression: Pneumonia Qualifiers: Pneumonia type: due to unspecified organism Laterality: right Lung location: lower lobe of lung Qualified Code(s): J18.1 - Lobar pneumonia, unspecified organism Disposition: Admitted As Inpatient Referrals: Nurys Nazario MD [Primary Care Provider] - Forms: ED Satisfaction Letter Time of Disposition: 13:43 SOB HPI - General Chief Complaint: ED Upper Respiratory Infection Stated Complaint: Vomiting Time Seen by Provider: 11/19/18 11:54 Source: patient, family, other (Old records) Mode of arrival: EMS Limitations: no limitations Nursing Notes Reviewed: Yes Vital Signs Reviewed: Yes - History of Present Illness Patient presents to the emergency department indicating that she had severe sepsis from a UTI in February. She states that she spent weeks in the ICU, had a trach, spent months in rehabilitation, now is debilitated but recovering. She states that for 3 days she has had loss of appetite, vomited once this morning, cough productive of green sputum, dyspnea with minimal exertion, reports no chest pain even with exertion, denies any palpitations, states that she had chills yesterday but did not take her temperature. She reports nausea and the episode of vomiting this morning. One episode of brown diarrhea. Denies abdominal pain. Denies any skin changes or rash, denies any distal edema or leg pain, Baseline is at her home, had not been requiring a walker but still has difficulty getting around, uses oxygen 2-3 L nasal cannula but no breathing treatments or nebulizers Has no baseline lung disease that she is aware of Reports no history of atrial fib or other arrhythmia Pt Subjective Complaint: shortness of breath, cough Onset (ago): day(s) Severity: moderate Consistency/Duration: constant Improves with: oxygen, rest Worsens with: exertion, coughing Known history of: other Associated symptoms: Reports: fever (Chills yesterday), cough, wheezing, sputum production, nausea/vomiting. Denies: chest pain, pain with inspiration, orthopnea, lower extremity pain, polyuria, palpitations, hemoptysis, diaphoresis, syncope, abdominal pain Treatment prior to arrival: oxygen Cough present: Yes Cough Description: Voluntary, Productive, Moist, Weak, Hoarse Cough Frequency: Intermittent Sputum production: Yes Sputum Amount: Moderate Sputum Color: Green - Related Data Home oxygen amount: 2 liters Home Medications Medication Instructions Recorded Confirmed Meloxicam [Mobic] 15 mg PO DAILY 09/07/15 02/20/18 Oxybutynin Chloride [Ditropan Xl] 15 mg PO DAILY 09/07/15 02/20/18 Vitamin B Complex [B Complex] 1 each PO DAILY 09/19/15 02/20/18 Metoprolol [Lopressor] 50 mg PO BID 10/17/15 02/20/18 Aspirin [Lo-Dose Aspirin EC] 81 mg PO DAILY 07/28/16 02/20/18 Furosemide [Lasix] 80 mg PO DAILY 12/31/16 02/20/18 Oxygen 2 l NS HS 03/10/17 02/20/18 Omeprazole [PriLOSEC] 20 mg PO DAILY 06/23/17 02/20/18 Lisinopril [Zestril] 40 mg PO QAM 10/08/17 02/20/18 Previous Rx's Medication Instructions Recorded Albuterol Sulfate [Albuterol 2 puff IH Q4HR PRN #1 inhaler 07/31/16 Inhaler] Potassium Chloride 20 meq PO DAILY #30 tab.er.prt 07/31/16 Anastrozole [Arimidex] 1 mg PO DAILY #90 tablet 05/28/17 Zolpidem [Ambien] 5 mg PO HS PRN #30 tablet 06/23/17 Allergies Allergy/AdvReac Type Severity Reaction Status Date / Time cephalexin [From Keflex] Allergy Rash Verified 02/20/18 14:11 atorvastatin [From Lipitor] AdvReac Muscle Pain Verified 02/20/18 14:11 nifedipine [From Procardia] AdvReac Blurry Verified 02/20/18 14:11 Vision All systems ED: reviewed and negative except as stated. 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 Skin color is pink. Appears well hydrated, body habitus obese . Non toxic appearing. Head: Normocephalic and atraumatic. External ear exam normal Nose: Nose normal. Mouth/Throat: Uvula is midline, oropharynx is clear and moist and mucous membranes are normal. Eyes: Conjunctivae nl, extraocular motions and lids are normal. Pupils are equal, round, and reactive to light. Neck: Normal range of motion and phonation normal. Neck supple. Cardiovascular: Normal rate, regular rhythm, normal heart sounds. Breast: Scar left anterior breast where patient states biopsy for breast cancer was accomplished. Palpation of bilateral breast reveals no obvious masses. Patient states she had a mammogram scheduled for today. Pulmonary/Chest: No Respiratory distress. But the patient has tachypnea at rest and has slight increase in respiratory effort. Coarse rhonchi throughout all lung valderrama. Audible wheezing. Diminished breath sounds at both bases.. Abdominal: Soft. Massive panniculus. No areas of herniation. bowel sounds are normal. no tenderness, no masses, no guarding, no rebound Musculoskeletal: Good distal pulses. Soft compartments. Brisk cap refill. Extremities: Normal range of motion.Intact peripheral pulses. No Edema. Extremity skin color nl, no calf tenderness or palpable cords. Neurological: Patient is alert and oriented without evidence of obvious motor deficits Skin: Skin is warm, dry and intact. color is normal, cap refill is quick Psychiatric: Patient has depressed mood and flat affect. Patient speech is normal and behavior is normal. Thought content normal. - General General appearance: alert Course - Reevaluation(s) Reevaluation #1: inproved w/ nebulzier txs. she feels rose marie,r oxygen by nc increased . she has pneumonia and will require inpt but unlikely to require ICU. I discussed the case with Dr. Gandhi carton stapler for Dr. Hendrix as the patient requests to stay here if possible and he indicates that he is comfortable with this admission. We discussed inpatient orders and he would like me to initially w rite these and will see her within a few hours. We discussed antibiotic choice and Levaquin is adequate in his opinion. Time: 13:38 Vital Signs Temperature 98.4 F 11/19/18 11:49 Pulse Rate 99 11/19/18 11:49 Respiratory Rate 18 11/19/18 11:49 Blood Pressure 182/90 11/19/18 11:49 O2 Sat by Pulse Oximetry 84 11/19/18 11:49 Temperature 98.4 F 11/19/18 11:49 Pulse Rate 98 11/19/18 12:25 Respiratory Rate 20 11/19/18 13:02 Blood Pressure 182/90 11/19/18 11:49 O2 Sat by Pulse Oximetry 98 11/19/18 13:02 Oxygen Delivery Oxygen Delivery Nasal Cannula Shortness of Breath/Dyspnea - [facility] Narrative Medical decision making narrative: Patient has minimal mobility. Lung disease. Uses oxygen. She may have pneumonia but cannot rule out PE. D-dimer added. Treatment for bronchospasm initiated. - Differential Diagnosis Likely: acute exacerbation of chronic obstructive airways disease, congestive heart failure, pneumonia, pulmonary embolism - Medical Records Medical records reviewed: Yes I reviewed the patient's medical records. - Lab Data Lab results reviewed: Yes I reviewed the patient's lab results. Result diagrams: 11/19/18 12:28 11/19/18 12:28 Lab Results 11/19/18 11/19/18 11/19/18 Range/Units 12:28 12:28 12:28 WBC 7.1 (4.3-11.1) K/mcL RBC 4.51 (3.82-4.97) M/mcL Hgb 11.7 (11.5-15.4) g/dL Hct 39.0 (35.3-44.9) % MCV 86.5 (83.0-100.0) fL MCH 25.9 L (28.0-33.3) pg MCHC 30.0 L (31.6-35.5) g/dL RDW 15.9 H (11.5-14.5) % Plt Count 305 (140-400) K/mcL MPV 10.8 (9.4-12.4) fL Immature Gran % 0.3 (0-4) % Seg Neutrophils % 81.3 % Lymphocytes % 9.1 % Monocytes % 7.7 % Eosinophils % 1.3 % Basophils % 0.3 % Neutrophils # 5.8 (1.6-8.9) K/mcL Lymphocytes # 0.7 (0.6-4.6) K/mcL Monocytes # 0.6 (0.0-1.3) K/mcL Eosinophils # 0.1 (0.0-0.6) K/mcL Basophils # 0.0 (0.0-0.2) K/mcL PT 30.6 H (9.4-12.1) Seconds INR 2.7 D-Dimer (0-500) ng/mLFEU VBG pH (7.32-7.42) pH Units VBG pCO2 (41-51) mmHg VBG pO2 (25-50) mmHg VBG HCO3 (21-27) mEq/L Sodium 138 (136-145) mEq/L Potassium 3.5 (3.5-5.1) mEq/L Chloride 94 L (98-107) mEq/L Carbon Dioxide 38 H (23-29) mEq/L BUN 14 (8-23) mg/dL Creatinine 0.85 (0.60-1.20) mg/dL Est GFR ( Amer) > 60 (> 60) Est GFR (Non-Af Amer) > 60 (> 60) BUN/Creatinine Ratio 16 (6-26) Glucose 114 H (70-105) mg/dL Calculated Osmolality 287 (280-300) Lactic Acid (0.5-2.2) mmol/L Calcium 9.4 (8.6-10.3) mg/dL Magnesium 1.8 (1.6-2.6) mg/dL Total Bilirubin 0.8 (0.3-1.0) mg/dL Direct Bilirubin 0.2 (0.0-0.2) mg/dL Indirect Bilirubin 0.6 (0.0-1.2) mg/dL AST 20 (13-39) Units/L ALT 9 (7-52) Units/L Alkaline Phosphatase 90 (34-104) Units/L Troponin I < 0.03 (< 0.04) ng/mL B-Natriuretic Peptide (Less than 100) pg/mL Serum Total Protein 7.5 (6.4-8.9) g/dL Albumin 3.7 (3.5-5.7) g/dL Globulin 3.8 H (2.4-3.5) g/dL Albumin/Globulin Ratio 1.0 L (1.1-2.2) 11/19/18 11/19/18 11/19/18 Range/Units 12: 12: 12: WBC (4.3-11.1) K/mcL RBC (3.82-4.97) M/mcL Hgb (11.5-15.4) g/dL Hct (35.3-44.9) % MCV (83.0-100.0) fL MCH (28.0-33.3) pg MCHC (31.6-35.5) g/dL RDW (11.5-14.5) % Plt Count (140-400) K/mcL MPV (9.4-12.4) fL Immature Gran % (0-4) % Seg Neutrophils % % Lymphocytes % % Monocytes % % Eosinophils % % Basophils % % Neutrophils # (1.6-8.9) K/mcL Lymphocytes # (0.6-4.6) K/mcL Monocytes # (0.0-1.3) K/mcL Eosinophils # (0.0-0.6) K/mcL Basophils # (0.0-0.2) K/mcL PT (9.4-12.1) Seconds INR D-Dimer 376 (0-500) ng/mLFEU VBG pH (7.32-7.42) pH Units VBG pCO2 (41-51) mmHg VBG pO2 (25-50) mmHg VBG HCO3 (21-27) mEq/L Sodium (136-145) mEq/L Potassium (3.5-5.1) mEq/L Chloride (98-107) mEq/L Carbon Dioxide (23-29) mEq/L BUN (8-23) mg/dL Creatinine (0.60-1.20) mg/dL Est GFR ( Amer) (> 60) Est GFR (Non-Af Amer) (> 60) BUN/Creatinine Ratio (6-26) Glucose (70-105) mg/dL Calculated Osmolality (280-300) Lactic Acid 0.9 (0.5-2.2) mmol/L Calcium (8.6-10.3) mg/dL Magnesium (1.6-2.6) mg/dL Total Bilirubin (0.3-1.0) mg/dL Direct Bilirubin (0.0-0.2) mg/dL Indirect Bilirubin (0.0-1.2) mg/dL AST (13-39) Units/L ALT (7-52) Units/L Alkaline Phosphatase (34-104) Units/L Troponin I (< 0.04) ng/mL B-Natriuretic Peptide 465 H (Less than 100) pg/mL Serum Total Protein (6.4-8.9) g/dL Albumin (3.5-5.7) g/dL Globulin (2.4-3.5) g/dL Albumin/Globulin Ratio (1.1-2.2) 11/19/18 Range/Units 12:40 WBC (4.3-11.1) K/mcL RBC (3.82-4.97) M/mcL Hgb (11.5-15.4) g/dL Hct (35.3-44.9) % MCV (83.0-100.0) fL MCH (28.0-33.3) pg MCHC (31.6-35.5) g/dL RDW (11.5-14.5) % Plt Count (140-400) K/mcL MPV (9.4-12.4) fL Immature Gran % (0-4) % Seg Neutrophils % % Lymphocytes % % Monocytes % % Eosinophils % % Basophils % % Neutrophils # (1.6-8.9) K/mcL Lymphocytes # (0.6-4.6) K/mcL Monocytes # (0.0-1.3) K/mcL Eosinophils # (0.0-0.6) K/mcL Basophils # (0.0-0.2) K/mcL PT (9.4-12.1) Seconds INR D-Dimer (0-500) ng/mLFEU VBG pH 7.41 (7.32-7.42) pH Units VBG pCO2 62 H (41-51) mmHg VBG pO2 50 (25-50) mmHg VBG HCO3 39 H (21-27) mEq/L Sodium (136-145) mEq/L Potassium (3.5-5.1) mEq/L Chloride (98-107) mEq/L Carbon Dioxide (23-29) mEq/L BUN (8-23) mg/dL Creatinine (0.60-1.20) mg/dL Est GFR ( Amer) (> 60) Est GFR (Non-Af Amer) (> 60) BUN/Creatinine Ratio (6-26) Glucose (70-105) mg/dL Calculated Osmolality (280-300) Lactic Acid (0.5-2.2) mmol/L Calcium (8.6-10.3) mg/dL Magnesium (1.6-2.6) mg/dL Total Bilirubin (0.3-1.0) mg/dL Direct Bilirubin (0.0-0.2) mg/dL Indirect Bilirubin (0.0-1.2) mg/dL AST (13-39) Units/L ALT (7-52) Units/L Alkaline Phosphatase (34-104) Units/L Troponin I (< 0.04) ng/mL B-Natriuretic Peptide (Less than 100) pg/mL Serum Total Protein (6.4-8.9) g/dL Albumin (3.5-5.7) g/dL Globulin (2.4-3.5) g/dL Albumin/Globulin Ratio (1.1-2.2) - Radiology Data Radiology results reviewed: Yes I reviewed the patient's radiology results. - EKG Data EKG attestation: Yes I reviewed and interpreted this EKG. EKG results narrative: ECG reveals atrial fibrillation rate of 96 . Narrow QRS. No ST-T wave changes. No signs of acute ischemia.
[2018-11-19 12:36] LABS: Basophils % 0.3 %; Eosinophils # 0.1 K/mcL (0.0-0.6); Eosinophils % 1.3 %; Hemoglobin 11.7 g/dL (11.5-15.4); Immature Granulocytes % 0.3 % (0-4); Lymphocytes # 0.7 K/mcL (0.6-4.6); Lymphocytes % 9.1 %; Mean Corpuscular Hemoglobin 25.9 pg (28.0-33.3); Mean Corpuscular Volume 86.5 fL (83.0-100.0); Mean Platelet Volume 10.8 fL (9.4-12.4); Monocytes # 0.6 K/mcL (0.0-1.3); Monocytes % 7.7 %; Neutrophils # 5.8 K/mcL (1.6-8.9); Platelet Count 305 K/mcL (140-400); Red Blood Count 4.51 M/mcL (3.82-4.97); Red Cell Distribution Width 15.9 % (11.5-14.5); Segmented Neutrophils % 81.3 %
[2018-11-19 12:42] LABS: VBG HCO3 39 mEq/L (21-27); VBG PCO2 62 mmHg (41-51); VBG PH 7.41 pH Units (7.32-7.42); VBG PO2 50 mmHg (25-50)
[2018-11-19 12:42] LABS: INR 2.7; Prothrombin Time 30.6 Seconds (9.4-12.1)
[2018-11-19 12:55] LABS: Alanine Aminotransferase 9 Units/L (7-52); Albumin 3.7 g/dL (3.5-5.7); Alkaline Phosphatase 90 Units/L (34-104); Aspartate Amino Transferase 20 Units/L (13-39); BUN/Creatinine Ratio 16 (6-26); Bilirubin,Direct 0.2 mg/dL (0.0-0.2); Bilirubin,Indirect 0.6 mg/dL (0.0-1.2); Bilirubin,Total 0.8 mg/dL (0.3-1.0); Blood Urea Nitrogen 14 mg/dL (8-23); Calcium 9.4 mg/dL (8.6-10.3); Carbon Dioxide 38 mEq/L (23-29); Chloride 94 mEq/L (98-107); Globulin 3.8 g/dL (2.4-3.5); Glucose 114 mg/dL (70-105); Magnesium 1.8 mg/dL (1.6-2.6); Osmolality,Calculated 287 (280-300); Potassium 3.5 mEq/L (3.5-5.1); Sodium 138 mEq/L (136-145); Total Protein 7.5 g/dL (6.4-8.9); Troponin I < 0.03 ng/mL (< 0.04); eGFR For Non-African Americans > 60 (> 60)
[2018-11-19] MEDS ORDERED: Furosemide 40 MG/4 ML VIAL IVP ONE (12:59)
[2018-11-19 14:26] LABS: Bilirubin,Urine Negative (Negative); Blood,Urine Moderate (Negative); Clarity,Urine Clear (Clear); Color,Urine Yellow (Yellow); Glucose,Urine (UA) Normal (Normal); Ketones,Urine Negative (Negative); Leukocyte Esterase,Urine Small (Negative); Nitrite,Urine Positive (Negative); Protein,Urine Negative (Neg-Trace); Specific Gravity,Urine 1.015 (1.010-1.025); Urobilinogen,Urine Normal (Normal)
[2018-11-19 14:38] LABS: Bacteria,Urine Moderate per hpf (None-Few); Squamous Epithelial Cell,Urine Few per lpf (None-Few)
[2018-11-19] MEDS ORDERED: Naloxone 0.4 MG/ML INJ IVP PRN (14:53)
[2018-11-19] MEDS ORDERED: Acetaminophen 325 MG TABLET PO PRN (14:53)
[2018-11-19] MEDS ORDERED: 0.9 % Sodium Chloride 1,000 ML IVC SCH (14:53)
[2018-11-19] MEDS ORDERED: Ipratropium/Albuterol Neb 3 ML IH PRN (16:44)
--- NOTE | 2018-11-19 17:44 | Electrocardiograph Report ---
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
--- NOTE | 2018-11-19 17:56 | Internal Med History&Physical ---
Date of Encounter: 11/19/18 Time of Encounter: 17:53 Assessment and Plan (1) Pneumonia Current visit: Yes Status: Acute Clinically it appears that she has pneumonia with crackles and decreased breath sounds in the right base. She has chills, green sputum production, worsening hypoxia anorexia. Blood cultures have been done. Levaquin has been started. Aggressive respiratory treatments started. We will add Solu-Medrol. Continue with her oxygen and monitor closely. I believe she is going to be here at least 3 days and should be admitted to the acute bed from observation. Qualifiers: Pneumonia type: due to unspecified organism Laterality: right Lung location: lower lobe of lung Qualified Code(s): J18.1 - Lobar pneumonia, unspecified organism (2) Hypoxia Current visit: Yes Status: Acute Chronically she uses 1 or 2 L per nasal cannula. She is now requiring 3 L for appropriate saturation. She feels better after respiratory treatments. We will continue the same on a routine basis and more often when necessary. Solu-Medrol has been added. Bed rest and increase activity as tolerated (3) Hypertension Current visit: Yes Status: Chronic Chronic history of hypertension and we will continue her current medications. Qualifiers: Hypertension type: essential hypertension Qualified Code(s): I10 - Essential (primary) hypertension (4) Diet-controlled diabetes mellitus Current visit: Yes Status: Chronic Chronically has diet-controlled diabetes. We will follow her sugars closely as I anticipate they will elevate with Solu-Medrol use and her infection. Her g lucose control was checked recently and glycohemoglobin was 5.9% (5) GERD (gastroesophageal reflux disease) Current visit: Yes Status: Chronic History chronic GERD and on PPI. We will continue. No acute GI symptoms currently Qualifiers: Esophagitis presence: esophagitis presence not specified Qualified Code(s): K21.9 - Gastro-esophageal reflux disease without esophagitis (6) History of cancer of left breast Current visit: No Status: Chronic History of previous breast cancer left breast and had lumpectomy and radiation treatment. Continues with Arimidex. (7) Urinary tract infection Current visit: Yes Status: Acute Frequency of urination, urine testing shows 3-5 white blood cell counts and 5-15 RBCs and many bacteria. She may have a UTI. Culture has been sent. She is already on Levaquin for pulmonary infection. She has a history of previous urosepsis with a rather tumultuous course earlier this year Qualifiers: Urinary tract infection type: acute cystitis Hematuria presence: with hematuria Qualified Code(s): N30.01 - Acute cystitis with hematuria (8) Morbid obesity Current visit: Yes Status: Chronic Chronically morbidly obese with a very large pannus with edema. No skin breakdown or secondary infections. (9) Atrial fibrillation Current visit: Yes Status: Chronic Chronic atrial fibrillation and rate controlled. No CHF or angina history. She is anticoagulated with Coumadin and therapeutic with INR 2.7. Qualifiers: Atrial fibrillation type: chronic Qualified Code(s): I48.2 - Chronic atrial fibrillation (10) Chronic anticoagulation Current visit: Yes Status: Chronic Chronically anticoagulated with Coumadin with therapeutic INR currently 2.7. We will follow closely as she is now on antibiotics and has an infection (11) DVT prophylaxis Current visit: Yes Status: Acute She is at risk for DVT but has Coumadin on board and therapeutic. INR 2.7 today will follow closely as she is on antibiotics and has an infection. Internal Medicine - H&P: HPI Chief complaint: I got short of breath and have a cough Admitted From: Emergency Dept Plans for Post Hospital Care: Home History of present illness: Ms. Singh is a 73 year old female with known history of diet-controlled diabetes, hypertension, atrial fibrillation and oxygen dependency started getting ill 2 to 3 days ago. She has had a cough that was clear and has worsened. She had scratchy throat. Then yesterday started having green mucus sputum production area she has had chills but no fever. She has had decreased appetite. She vomited this morning after trying to eat breakfast. She has had no other oral intake today. She has had audible crackles and wheezing heard. She has also had frequency of urination but no hematuria or dysuria. She does have a history of previous urosepsis with subsequent artificial ventilation and tracheostomy and PEG tube and recuperation. In the ER she was found to have congestion of lung findings, hypoxia, urine that looks infected. With the examination and clinical findings and history is recommended that she be admitted to the hospital. She states that after respiratory treatments she has felt better. She still has crackles and wheezing with respirations. Still wearing her oxygen but requiring 3 L per nasal cannula now. She denies any cardiac type chest pain. Past Med Surg Social Fam HX - Past Medical History Medical history: atrial fibrillation (Chronic atrial fibrillation without angina or CHF), cancer (Left breast cancer treated with lumpectomy and radiation 2015), diabetes (Diet controlled diabetes), GERD, hyperlipidemia, hypertension, kidney stones, other Additional medical history: Rt breast cancer. Psychiatric history: no psych history - Past Surgical History Surgical History: breast surgery, cholecystectomy, ureteral stent Additional surgical history: Rt breast lumpectomy. Bilateral cataract surgery. Tubal ligation. - Social History Smoking Status: Never smoker Smokeless Tobacco Status: No Alcohol use: none Drug use: none - Family History Father Living Status: Age at : 61 Cause of : Pancreatic cancer Hx Family Cancer: Yes (pancreatic) Mother Living Status: Age at : 81 Cause of : ? Heart disease Hx Family Cancer: Yes (Thyroid cancer) Hx Family Neuromuscular Disorders: Yes (CVA) Hx Family Neurologic Disorders: Yes (CVA) Internal Medicine - H&P: Meds Metoprolol [Lopressor] 50 mg PO BID 10/17/15 [History] Aspirin [Lo-Dose Aspirin EC] 81 mg PO DAILY 07/28/16 [History] Furosemide [Lasix] 80 mg PO DAILY 12/31/16 [History] Oxygen 2 l NS HS 03/10/17 [History] Anastrozole [Arimidex] 1 mg PO DAILY #90 tablet 05/28/17 [Rx] Omeprazole [PriLOSEC] 20 mg PO DAILY 06/23/17 [History] Lisinopril [Zestril] 20 mg PO QAM 10/08/17 [History] Acetaminophen [Tylenol Arthritis] 650 mg PO Q8H PRN 11/19/18 [History] Iron Polysaccharide Complex [Ferrex 150] 150 mg PO DAILY 11/19/18 [History] Potassium Chloride 20 meq PO BID 11/19/18 [History] Sertraline [Zoloft] 25 mg PO DAILY 11/19/18 [History] Warfarin [Coumadin] 3 mg PO 1800 11/19/18 [History] Allergy/AdvReac Type Severity Reaction Status Date / Time cephalexin [From Keflex] Allergy Rash Verified 02/20/18 14:11 atorvastatin [From Lipitor] AdvReac Muscle Pain Verified 02/20/18 14:11 nifedipine [From Procardia] AdvReac Blurry Verified 02/20/18 14:11 Vision - Constitutional Constitutional: anorexia, chills, fatigue, lethargy, no fever(s), no falls - EENT Eyes: no change in vision Ears: no ear discharge, no ear pain Nose, mouth and throat: sore throat, no dry mouth, no sinus pain, no sinus pressure - Breasts Additional comments: Status post left breast biopsy and radiation treatment for breast cancer. - Cardiovascular Cardiovascular ROS IM: dyspnea, no chest pain, no lightheadedness - Respiratory Respiratory: cough, dyspnea, wheezing, chest congestion, excessive phlegm production (Green phlegm production), change in phlegm color - Gastrointestinal Gastrointestinal: no change in bowel habits, no change in stool character, no constipation, no diarrhea - Genitourinary Genitourinary: urinary frequency, no dysuria, no hematuria Menstruation: post menopausal - Musculoskeletal Musculoskeletal ROS IM: no joint swelling, no muscle weakness - Integumentary Integumentary IM: no rash - Neurological Neurological ROS: no confusion, no dizziness, no focal weakness - Psychiatric Psychiatric: no confusion, no visual hallucinations - Constitutional Vitals: Temp Pulse Resp BP Pulse Ox 98.3 F 102 18 156/85 90 11/19/18 15:16 11/19/18 15:16 11/19/18 15:16 11/19/18 15:16 11/19/18 15:43 General appearance: Present: mild distress, A&O X 3, obese, answers questions appropriately Exam: Short morbidly obese woman with a huge abdominal pannus lying in bed at 45 degree angle with obvious audible crackles and wheezes when she speaks - Head Head exam: Present: atraumatic - Eye Eye exam: Present: EOMI, PERRL - ENT ENT exam: Present: normal oropharynx (Upper set of dentures, lower normal teeth), TM's normal bilaterally - Neck Neck exam general surgery: Absent: lymphadenopathy, tenderness, thyromegaly Additional comments: Faint low pitched bilateral carotid bruits, right greater than left - Respiratory Additional comments: She has pops and crackles and expiratory wheezes heard in all lung valderrama. She has marked decreased breath sounds in the right base. Audibly she has crackles heard when she speaks - Cardiovascular Cardiovascular exam: Present: irregular rhythm, +S1, +S2, systolic murmur (1/6 systolic murmur) - GI/Abdominal GI/Abdominal exam: Present: soft. Absent: guarding, hepatomegaly, mass, rebound, tenderness Additional comments: Her examination is limited because of her huge abdominal pannus which has edema in the skin on the dependent side. I do not see any skin breakdown - Extremities Exam Extremities exam: Present: normal capillary refill. Absent: calf tenderness, mottling, pedal edema, tenderness - Neurological Exam Neurological exam: Present: CN II-XII intact, oriented X3, no focal deficits - Psychiatric Psychiatric exam: Present: normal affect, normal mood Internal Med - H&P Results - Labs CBC & Chem 7: 11/19/18 12:28 11/19/18 12:28 Labs: Short CBC 11/19/18 Range/Units 12:28 WBC 7.1 (4.3-11.1) K/mcL Hgb 11.7 (11.5-15.4) g/dL Hct 39.0 (35.3-44.9) % Plt Count 305 (140-400) K/mcL Neutrophils # 5.8 (1.6-8.9) K/mcL BMP 11/19/18 12:28 Sodium 138 Potassium 3.5 Chloride 94 L Carbon Dioxide 38 H BUN 14 Creatinine 0.85 Glucose 114 H Calcium 9.4 Cardiac Enzymes 11/19/18 Range/Units 12:28 Troponin I < 0.03 (< 0.04) ng/mL Liver Function 11/19/18 Range/Units 12:28 Total Bilirubin 0.8 (0.3-1.0) mg/dL Direct Bilirubin 0.2 (0.0-0.2) mg/dL AST 20 (13-39) Units/L ALT 9 (7-52) Units/L Alkaline Phosphatase 90 (34-104) Units/L Albumin 3.7 (3.5-5.7) g/dL Urine 11/19/18 Range/Units 14:20 Urine Color Yellow (Yellow) Urine Clarity Clear (Clear) Urine pH 7.0 (5.0-8.0) pH Units Ur Specific [place] 1.015 (1.010-1.025) Urine Protein Negative (Neg-Trace) mg/dL Urine Glucose (UA) Normal (Normal) mg/dL Labs have been reviewed. Surprisingly her white blood cell count is normal. Renal function is normal. Glucose minimally elevated but she is a known diet- controlled diabetic. Mildly elevated BNP which is not different than her last few BNP readings. - ABG Interpretation ABG results: 11/19/18 12:40 VBG pH 7.41 VBG pCO2 62 H VBG pO2 50 VBG HCO3 39 H - EKG Data EKG comments: 11/19/18 19:01 EKG shows atrial fibrillation. Monitor shows controlled atrial fibrillation rate - Impressions ITS Impressions Chest X-Ray 11/19/18 12:16 IMPRESSION: Cardiomegaly with nonspecific interstitial changes. Correlate clinical evidence of vascular congestion. D/ / 11/19/2018 12:59:51 Jf Jeong MD / [facility] Interpreting Provider: Jf Jeong MD - Diagnostic Studies Chest x-ray Status: image reviewed by me (Lungs showed increased congestion throughout. With comparison with previous film appears to have increased stranding in the right base. There is a difference in technique though.) - VTE Reasons for not Prescribing Prophylaxis: Not indicated-Anticoagulated or INR therapeutic
[2018-11-19] MEDS ORDERED: *HR* Warfarin 3 MG TABLET PO SCH (18:00)
[2018-11-19] MEDS ORDERED: *HR* Warfarin 4 MG TABLET PO SCH ×2 (18:15→18:59)
[2018-11-19] MEDS: Aspirin Enteric Coated 81 MG Tablet PO SCH (19:49)
[2018-11-19] MEDS ORDERED: *HR* Warfarin 2 MG TABLET PO SCH (20:30)
[2018-11-19] MEDS ORDERED: *HR* Warfarin 2.5 MG TABLET PO SCH (20:30)
[2018-11-19] MEDS ORDERED: NON-FORMULARY MEDICATION 1 EACH EACH (Oxygen [Oxygen] 2 L) NS SCH (21:00)
[2018-11-19] MEDS: Warfarin 2.5 MG, Warfarin 2 MG PO SCH (21:35)
[2018-11-19] MEDS: Ipratropium/Albuterol Neb 3 ML IH SCH (21:36)
[2018-11-19] MEDS: methylPREDNISolone 125 MG/2 ML VIAL IVP SCH (21:36)
[2018-11-20] MEDS: Ipratropium/Albuterol Neb 3 ML IH SCH ×4 (04:27→23:30)
[2018-11-20] MEDS: methylPREDNISolone 125 MG/2 ML VIAL IVP SCH ×4 (04:27→21:03)
[2018-11-20 05:04] LABS: Basophils % 0.4 %; Hematocrit 40.6 % (35.3-44.9); Immature Granulocytes % 1.1 % (0-4); Lymphocytes # 0.5 K/mcL (0.6-4.6); Lymphocytes % 9.4 %; Mean Corpuscular HGB Conc 29.6 g/dL (31.6-35.5); Mean Corpuscular Hemoglobin 26.3 pg (28.0-33.3); Mean Corpuscular Volume 88.8 fL (83.0-100.0); Mean Platelet Volume 10.2 fL (9.4-12.4); Monocytes # 0.1 K/mcL (0.0-1.3); Monocytes % 1.6 %; Neutrophils # 4.8 K/mcL (1.6-8.9); Platelet Count 276 K/mcL (140-400); Red Blood Count 4.57 M/mcL (3.82-4.97); Red Cell Distribution Width 15.6 % (11.5-14.5); Segmented Neutrophils % 87.5 %
[2018-11-20 05:13] LABS: INR 2.9; Prothrombin Time 32.9 Seconds (9.4-12.1)
[2018-11-20 05:15] LABS: Activated Partial Thrombo Time 43.7 Seconds (26.0-36.0)
[2018-11-20 05:30] LABS: Alanine Aminotransferase 11 Units/L (7-52); Albumin 3.8 g/dL (3.5-5.7); Alkaline Phosphatase 100 Units/L (34-104); Aspartate Amino Transferase 22 Units/L (13-39); BUN/Creatinine Ratio 18 (6-26); Bilirubin,Total 0.7 mg/dL (0.3-1.0); Blood Urea Nitrogen 15 mg/dL (8-23); Calcium 9.1 mg/dL (8.6-10.3); Carbon Dioxide 40 mEq/L (23-29); Chloride 95 mEq/L (98-107); Globulin 3.7 g/dL (2.4-3.5); Glucose 185 mg/dL (70-105); Magnesium 1.8 mg/dL (1.6-2.6); Osmolality,Calculated 294 (280-300); Potassium 3.9 mEq/L (3.5-5.1); Sodium 139 mEq/L (136-145); Total Protein 7.5 g/dL (6.4-8.9); eGFR For Non-African Americans > 60 (> 60)
--- NOTE | 2018-11-20 08:27 | Internal Med Progress Note ---
Date of Encounter: 11/20/18 Time of Encounter: 08:27 - Assessment and plan (1) Pneumonia Current Visit: Yes Status: Acute Assessment and plan: She is receiving Levaquin for this. She is also getting steroids and duo nebs and oxygen. Qualifiers: Pneumonia type: due to unspecified organism Laterality: right Lung location: lower lobe of lung Qualified Code(s): J18.1 - Lobar pneumonia, unspecified organism (2) Hypertension Current Visit: Yes Status: Chronic Assessment and plan: She is on her home medications that is currently stable Qualifiers: Hypertension type: essential hypertension Qualified Code(s): I10 - Essential (primary) hypertension (3) Diet-controlled diabetes mellitus Current Visit: Yes Status: Chronic Assessment and plan: Her blood sugars are elevated we will go ahead and add sliding scale to her (4) GERD (gastroesophageal reflux disease) Current Visit: Yes Status: Chronic Assessment and plan: continue home medication Qualifiers: Esophagitis presence: esophagitis presence not specified Qualified Code(s): K21.9 - Gastro-esophageal reflux disease without esophagitis (5) DVT prophylaxis Current Visit: Yes Status: Acute Assessment and plan: She is on Coumadin for her A. fib (6) Atrial fibrillation Current Visit: Yes Status: Chronic Assessment and plan: sHe is anticoagulated on Coumadin she is rate controlled Qualifiers: Atrial fibrillation type: chronic Qualified Code(s): I48.2 - Chronic atrial fibrillation (7) Chronic anticoagulation Current Visit: Yes Status: Chronic (8) Vitamin D insufficiency Current Visit: No Status: Chronic (9) Morbid obesity Current Visit: Yes Status: Chronic - Subjective Interval history: She is feeling better this morning she has less short of breath she feels like she has increased energy she denies chest pain or palpitations she has been getting up to the toilet in the small room. She denies pain he has a mild cough she does not feel dizzy she says she has not had an appetite and days and she finished her entire breakfast this morning - Constitutional Vitals: Temp Pulse Resp BP Pulse Ox 98.0 F 88 16 161/75 95 11/20/18 04:30 11/20/18 04:30 11/20/18 04:30 11/20/18 04:30 11/20/18 04:30 General appearance: Present: mild distress, A&O X 3, obese, answers questions appropriately - Head Head exam: Present: atraumatic, normocephalic - Respiratory Respiratory exam: Present: wheezes - Cardiovascular Cardiovascular exam: Present: RRR. Absent: systolic murmur - GI/Abdominal GI/Abdominal exam: Present: normal bowel sounds, no peritoneal signs (But exam is totally limited by her massive pannus there is her baseline edema of that area no erythema.). Absent: tenderness - Extremities Exam Extremities exam: Present: normal capillary refill, warm. Absent: pedal edema - Skin Skin exam: Present: dry, warm Internal Medicine: Result - Labs CBC & Chem 7: 11/20/18 04:55 11/20/18 04:55 Labs: Short CBC 11/19/18 11/20/18 Range/Units 12:28 04:55 WBC 7.1 5.5 (4.3-11.1) K/mcL Hgb 11.7 12.0 (11.5-15.4) g/dL Hct 39.0 40.6 (35.3-44.9) % Plt Count 305 276 (140-400) K/mcL Neutrophils # 5.8 4.8 (1.6-8.9) K/mcL BMP 11/19/18 11/20/18 12:28 04:55 Sodium 138 139 Potassium 3.5 3.9 Chloride 94 L 95 L Carbon Dioxide 38 H 40 H* BUN 14 15 Creatinine 0.85 0.85 Glucose 114 H 185 H Calcium 9.4 9.1 Cardiac Enzymes 11/19/18 Range/Units 12:28 Troponin I < 0.03 (< 0.04) ng/mL Liver Function 11/19/18 11/20/18 Range/Units 12:28 04:55 Total Bilirubin 0.8 0.7 (0.3-1.0) mg/dL Direct Bilirubin 0.2 (0.0-0.2) mg/dL AST 20 22 (13-39) Units/L ALT 9 11 (7-52) Units/L Alkaline Phosphatase 90 100 (34-104) Units/L Albumin 3.7 3.8 (3.5-5.7) g/dL Urine 11/19/18 Range/Units 14:20 Urine Color Yellow (Yellow) Urine Clarity Clear (Clear) Urine pH 7.0 (5.0-8.0) pH Units Ur Specific [place] 1.015 (1.010-1.025) Urine Protein Negative (Neg-Trace) mg/dL Urine Glucose (UA) Normal (Normal) mg/dL - ABG Interpretation ABG results: PT/INR, D-dimer PT 32.9 Seconds (9.4-12.1) H 11/20/18 04:55 D-Dimer 376 ng/mLFEU (0-500) 11/19/18 12:28 - Impressions Impressions Chest X-Ray 11/19/18 12:16 IMPRESSION: Cardiomegaly with nonspecific interstitial changes. Correlate clinical evidence of vascular congestion. D/ / 11/19/2018 12:59:51 Jf Jeong MD / [facility] Interpreting Provider: Jf Jeong MD - VTE Reasons for not Prescribing Prophylaxis: Not indicated-Anticoagulated or INR therapeutic Consult Discharge Plan - Plan Referrals: Nurys Nazario MD [Primary Care Provider] -
[2018-11-20] MEDS: Furosemide 40 MG TABLET PO SCH (08:50)
[2018-11-20] MEDS: Vitamin B Complex/Vit C/Vit E 1 EACH TABLET PO SCH (08:51)
[2018-11-20] MEDS: Aspirin Enteric Coated 81 MG Tablet PO SCH (08:51)
[2018-11-20] MEDS: Iron Polysaccharide Complex 150 MG CAPSULE PO SCH (08:51)
[2018-11-20] MEDS: Anastrozole 1 MG TABLET PO SCH (08:51)
[2018-11-20] MEDS: Levofloxacin 750 MG/150 ML 750 MG/150 ML BAG IVPB SCH (08:52)
[2018-11-20] MEDS: Lisinopril 20 MG TABLET PO SCH (08:52)
[2018-11-20] MEDS ORDERED: Lisinopril 20 MG TABLET PO SCH (09:00)
[2018-11-20] MEDS ORDERED: D5% in Water 1,000 ML IVC PRN (09:37)
[2018-11-20] MEDS ORDERED: Dextrose Gel 15 GM/37.5 ML TUBE PO PRN ×2 (09:37)
[2018-11-20] MEDS ORDERED: *HR* Dextrose 50 % in Water (Syg) 50 ML SYRINGE IVP PRN (09:37)
[2018-11-20] MEDS: Insulin LISPRO 300 UNITS/3 ML VIAL SQ SCH ×3 (12:45→21:03)
[2018-11-20] MEDS ORDERED: Warfarin 2.5 MG, Warfarin 2 MG PO SCH (18:00)
[2018-11-20] MEDS ORDERED: *HR* Warfarin 3 MG TABLET PO SCH (18:01)
[2018-11-21] MEDS: methylPREDNISolone 125 MG/2 ML VIAL IVP SCH ×3 (05:15→20:52)
[2018-11-21] MEDS: Ipratropium/Albuterol Neb 3 ML IH SCH ×4 (05:16→22:02)
[2018-11-21 05:54] LABS: Hemoglobin 11.2 g/dL (11.5-15.4); Immature Granulocytes % 0.5 % (0-4); Lymphocytes # 0.5 K/mcL (0.6-4.6); Lymphocytes % 10.7 %; Mean Corpuscular HGB Conc 29.5 g/dL (31.6-35.5); Mean Corpuscular Hemoglobin 25.7 pg (28.0-33.3); Mean Corpuscular Volume 87.4 fL (83.0-100.0); Mean Platelet Volume 10.4 fL (9.4-12.4); Monocytes # 0.4 K/mcL (0.0-1.3); Monocytes % 8.8 %; Neutrophils # 3.4 K/mcL (1.6-8.9); Platelet Count 305 K/mcL (140-400); Red Blood Count 4.35 M/mcL (3.82-4.97); Red Cell Distribution Width 15.3 % (11.5-14.5)
[2018-11-21 06:08] LABS: BUN/Creatinine Ratio 30 (6-26); Blood Urea Nitrogen 25 mg/dL (8-23); Calcium 9.3 mg/dL (8.6-10.3); Carbon Dioxide 38 mEq/L (23-29); Chloride 94 mEq/L (98-107); Glucose 177 mg/dL (70-105); Osmolality,Calculated 295 (280-300); Potassium 4.2 mEq/L (3.5-5.1); Sodium 138 mEq/L (136-145); eGFR For Non-African Americans > 60 (> 60)
[2018-11-21] MEDS: Levofloxacin 750 MG/150 ML 750 MG/150 ML BAG IVPB SCH (08:27)
[2018-11-21] MEDS: Anastrozole 1 MG TABLET PO SCH (08:28)
[2018-11-21] MEDS: Vitamin B Complex/Vit C/Vit E 1 EACH TABLET PO SCH (08:28)
[2018-11-21] MEDS: Aspirin Enteric Coated 81 MG Tablet PO SCH (08:28)
[2018-11-21] MEDS: Lisinopril 20 MG TABLET PO SCH (08:28)
[2018-11-21] MEDS: Iron Polysaccharide Complex 150 MG CAPSULE PO SCH (08:28)
[2018-11-21] MEDS: Furosemide 40 MG TABLET PO SCH (08:28)
[2018-11-21] MEDS: Insulin LISPRO 300 UNITS/3 ML VIAL SQ SCH ×4 (08:29→20:49)
--- NOTE | 2018-11-21 13:58 | Internal Med Progress Note ---
Date of Encounter: 11/21/18 Time of Encounter: 13:56 - Assessment and plan (1) Pneumonia Current Visit: Yes Status: Acute Assessment and plan: She is receiving Levaquin for this. She is also getting steroids and duo nebs and oxygen. wbc normal. she is improving but still on 3 to 4 l oxygen and her lung exam is still a lot of wheezing of rhonci Qualifiers: Pneumonia type: due to unspecified organism Laterality: right Lung location: lower lobe of lung Qualified Code(s): J18.1 - Lobar pneumonia, unspecified organism (2) Hypertension Current Visit: Yes Status: Chronic Assessment and plan: She is on her home medications that is currently stable Qualifiers: Hypertension type: essential hypertension Qualified Code(s): I10 - Essential (primary) hypertension (3) Diet-controlled diabetes mellitus Current Visit: Yes Status: Chronic Assessment and plan: Her blood sugars are elevated she is getting ssi (4) GERD (gastroesophageal reflux disease) Current Visit: Yes Status: Chronic Assessment and plan: continue home medication Qualifiers: Esophagitis presence: esophagitis presence not specified Qualified Code(s): K21.9 - Gastro-esophageal reflux disease without esophagitis (5) DVT prophylaxis Current Visit: Yes Status: Acute Assessment and plan: She is on Coumadin for her A. fib (6) Atrial fibrillation Current Visit: Yes Status: Chronic Assessment and plan: sHe is anticoagulated on Coumadin she is rate controlled Qualifiers: Atrial fibrillation type: chronic Qualified Code(s): I48.2 - Chronic atrial fibrillation (7) Chronic anticoagulation Current Visit: Yes Status: Chronic (8) Vitamin D insufficiency Current Visit: No Status: Chronic (9) Morbid obesity Current Visit: Yes Status: Chronic - Subjective Interval history: She is feeling better this morning she has less short of breath she feels like s he has increased energy she denies chest pain or palpitations she has been getting up to the toilet in the small room. she got a shower yesterday and walked the halls She denies pain she still has a cough she does not feel dizzy she says her appetite has improved. no n/v no pain. did not sleep well last night but sleeping well now - Constitutional Vitals: Temp Pulse Resp BP Pulse Ox 97.8 F 77 16 125/70 93 11/21/18 11:50 11/21/18 11:50 11/21/18 11:50 11/21/18 11:50 11/21/18 11:50 General appearance: Present: mild distress, A&O X 3, obese, answers questions appropriately - Head Head exam: Present: atraumatic, normocephalic - Respiratory Respiratory exam: Present: rhonchi, wheezes - Cardiovascular Cardiovascular exam: Present: RRR, +S1, +S2. Absent: systolic murmur - GI/Abdominal GI/Abdominal exam: Present: normal bowel sounds (morbidly obese), no peritoneal signs. Absent: guarding, tenderness - Extremities Exam Extremities exam: Present: warm. Absent: pedal edema - Skin Skin exam: Present: dry, warm. Absent: rash Internal Medicine: Result - Labs CBC & Chem 7: 11/21/18 05:15 11/21/18 05:15 Labs: Short CBC 11/21/18 Range/Units 05:15 WBC 4.3 (4.3-11.1) K/mcL Hgb 11.2 L (11.5-15.4) g/dL Hct 38.0 (35.3-44.9) % Plt Count 305 (140-400) K/mcL Neutrophils # 3.4 (1.6-8.9) K/mcL BMP 11/21/18 05:15 Sodium 138 Potassium 4.2 Chloride 94 L Carbon Dioxide 38 H BUN 25 H Creatinine 0.84 Glucose 177 H Calcium 9.3 - ABG Interpretation ABG results: PT/INR, D-dimer PT 32.9 Seconds (9.4-12.1) H 11/20/18 04:55 D-Dimer 376 ng/mLFEU (0-500) 11/19/18 12:28 - Impressions Impressions Chest X-Ray 11/19/18 12:16 IMPRESSION: Cardiomegaly with nonspecific interstitial changes. Correlate clinical evidence of vascular congestion. D/ / 11/19/2018 12:59:51 Jf Jeong MD / [facility] Interpreting Provider: Jf Jeong MD - VTE Reasons for not Prescribing Prophylaxis: Not indicated-Anticoagulated or INR therapeutic Consult Discharge Plan - Plan Referrals: Nurys Nazario MD [Primary Care Provider] -
[2018-11-21] MEDS: Warfarin 2.5 MG, Warfarin 2 MG PO SCH (17:25)
[2018-11-21] MEDS ORDERED: *HR* Warfarin 4 MG TABLET PO SCH (18:05)
[2018-11-22] MEDS: Ipratropium/Albuterol Neb 3 ML IH SCH ×4 (04:26→22:47)
[2018-11-22] MEDS: methylPREDNISolone 125 MG/2 ML VIAL IVP SCH ×3 (04:26→20:04)
[2018-11-22] MEDS: Insulin LISPRO 300 UNITS/3 ML VIAL SQ SCH ×4 (07:53→21:00)
[2018-11-22] MEDS: Levofloxacin 750 MG/150 ML 750 MG/150 ML BAG IVPB SCH (08:21)
[2018-11-22] MEDS: Iron Polysaccharide Complex 150 MG CAPSULE PO SCH (08:22)
[2018-11-22] MEDS: Anastrozole 1 MG TABLET PO SCH (08:22)
[2018-11-22] MEDS: Aspirin Enteric Coated 81 MG Tablet PO SCH (08:22)
[2018-11-22] MEDS: Lisinopril 20 MG TABLET PO SCH (08:22)
[2018-11-22] MEDS: Furosemide 40 MG TABLET PO SCH (08:23)
[2018-11-22] MEDS: Vitamin B Complex/Vit C/Vit E 1 EACH TABLET PO SCH (08:25)
--- NOTE | 2018-11-22 11:39 | Internal Med Progress Note ---
Date of Encounter: 11/23/18 Time of Encounter: 11:38 - Assessment and plan (1) Pneumonia Current Visit: Yes Status: Acute Assessment and plan: She is receiving Levaquin for this. She is also getting steroids and duo nebs and oxygen. wbc normal. she is improving but still on 3 to 4 l oxygen and her lung exam is still a lot of wheezing of rhonci Qualifiers: Pneumonia type: due to unspecified organism Laterality: right Lung location: lower lobe of lung Qualified Code(s): J18.1 - Lobar pneumonia, unspecified organism (2) Hypertension Current Visit: Yes Status: Chronic Assessment and plan: She is on her home medications that is currently stable Qualifiers: Hypertension type: essential hypertension Qualified Code(s): I10 - Essential (primary) hypertension (3) Diet-controlled diabetes mellitus Current Visit: Yes Status: Chronic Assessment and plan: Her blood sugars are elevated she is getting ssi (4) GERD (gastroesophageal reflux disease) Current Visit: Yes Status: Chronic Assessment and plan: continue home medication Qualifiers: Esophagitis presence: esophagitis presence not specified Qualified Code(s): K21.9 - Gastro-esophageal reflux disease without esophagitis (5) DVT prophylaxis Current Visit: Yes Status: Acute Assessment and plan: She is on Coumadin for her A. fib (6) Atrial fibrillation Current Visit: Yes Status: Chronic Assessment and plan: sHe is anticoagulated on Coumadin she is rate controlled Qualifiers: Atrial fibrillation type: chronic Qualified Code(s): I48.2 - Chronic atrial fibrillation (7) Chronic anticoagulation Current Visit: Yes Status: Chronic (8) Vitamin D insufficiency Current Visit: No Status: Chronic (9) Morbid obesity Current Visit: Yes Status: Chronic - Subjective Interval history: She is feeling better this morning she has less short of breath she feels like s he has increased energy she denies chest pain or palpitations she has been getting up to the toilet in the small room. she walked the halls She denies pain she still has a cough she does not feel dizzy she says her appetite has improved. no n/v no pain. - Constitutional Vitals: Temp Pulse Resp BP Pulse Ox 98.2 F 84 20 150/72 93 11/22/18 11:00 11/22/18 11:00 11/22/18 11:00 11/22/18 11:00 11/22/18 11:00 General appearance: Present: mild distress, A&O X 3, obese, answers questions appropriately - Head Head exam: Present: atraumatic, normocephalic - Respiratory Respiratory exam: Present: rhonchi, wheezes - Cardiovascular Cardiovascular exam: Present: RRR. Absent: systolic murmur - GI/Abdominal GI/Abdominal exam: Present: normal bowel sounds (obese limiting exam no change from her baseline), no peritoneal signs - Extremities Exam Extremities exam: Absent: pedal edema - Skin Skin exam: Present: dry, warm. Absent: rash Internal Medicine: Result - Labs CBC & Chem 7: 11/23/18 05:30 11/23/18 05:30 - ABG Interpretation ABG results: PT/INR, D-dimer PT 32.9 Seconds (9.4-12.1) H 11/20/18 04:55 D-Dimer 376 ng/mLFEU (0-500) 11/19/18 12:28 - VTE Reasons for not Prescribing Prophylaxis: Not indicated-Anticoagulated or INR therapeutic Consult Discharge Plan - Plan Referrals: Nurys Nazario MD [Primary Care Provider] -
[2018-11-22] MEDS: Warfarin 2.5 MG, Warfarin 2 MG PO SCH (17:52)
[2018-11-23] MEDS: methylPREDNISolone 125 MG/2 ML VIAL IVP SCH ×2 (05:22→12:38)
[2018-11-23] MEDS: Ipratropium/Albuterol Neb 3 ML IH SCH ×2 (05:22→10:54)
[2018-11-23 06:09] LABS: Basophils % 0.2 %; Hematocrit 37.2 % (35.3-44.9); Hemoglobin 11.1 g/dL (11.5-15.4); INR 4.3; Immature Granulocytes % 1.5 % (0-4); Lymphocytes # 0.5 K/mcL (0.6-4.6); Lymphocytes % 7.3 %; Mean Corpuscular HGB Conc 29.8 g/dL (31.6-35.5); Mean Corpuscular Hemoglobin 25.6 pg (28.0-33.3); Mean Corpuscular Volume 85.9 fL (83.0-100.0); Mean Platelet Volume 10.7 fL (9.4-12.4); Monocytes # 0.5 K/mcL (0.0-1.3); Monocytes % 7.4 %; Neutrophils # 5.5 K/mcL (1.6-8.9); Platelet Count 294 K/mcL (140-400); Red Blood Count 4.33 M/mcL (3.82-4.97); Red Cell Distribution Width 15.6 % (11.5-14.5); Segmented Neutrophils % 83.6 %
[2018-11-23 06:25] LABS: Prothrombin Time 48.2 Seconds (9.4-12.1)
[2018-11-23 06:29] LABS: BUN/Creatinine Ratio 44 (6-26); Blood Urea Nitrogen 40 mg/dL (8-23); Calcium 8.9 mg/dL (8.6-10.3); Carbon Dioxide 38 mEq/L (23-29); Chloride 93 mEq/L (98-107); Glucose 197 mg/dL (70-105); Osmolality,Calculated 301 (280-300); Potassium 3.7 mEq/L (3.5-5.1); Sodium 138 mEq/L (136-145); eGFR For Non-African Americans > 60 (> 60)
[2018-11-23] MEDS: Iron Polysaccharide Complex 150 MG CAPSULE PO SCH (07:51)
[2018-11-23] MEDS: Aspirin Enteric Coated 81 MG Tablet PO SCH (07:52)
[2018-11-23] MEDS: Furosemide 40 MG TABLET PO SCH (07:52)
[2018-11-23] MEDS: Levofloxacin 750 MG/150 ML 750 MG/150 ML BAG IVPB SCH (07:52)
[2018-11-23] MEDS: Anastrozole 1 MG TABLET PO SCH (07:52)
[2018-11-23] MEDS: Vitamin B Complex/Vit C/Vit E 1 EACH TABLET PO SCH (07:52)
[2018-11-23] MEDS: Lisinopril 20 MG TABLET PO SCH (07:53)
[2018-11-23] MEDS: Insulin LISPRO 300 UNITS/3 ML VIAL SQ SCH ×2 (07:54→12:38)
[2018-11-23 11:33] VITALS: BP 139/76
--- NOTE | 2018-11-23 13:36 | Discharge Summary ---
Orders not resulted at time of discharge: Pending orders 11/19/18 12:28 Culture,Blood [] Stat Date of Encounter: 11/23/18 Time of Encounter: 14:19 - Discharge Diagnosis (1) Pneumonia Priority: Primary Status: Acute Comments: She came in with a pneumonia. She had been coughing prior to admission she was short of breath. She did improve she was able to and with the halls she did get showered. She felt safe to go home. She was requiring oxygen but she was requiring oxygen prior to admission. She did receive Levaquin and IV Solu- Medrol while she was here. We will continue by mouth Levaquin and prednisone as an outpatient. She has a follow-up on November 26. Discharged home in stable condition. Qualifiers: Pneumonia type: due to unspecified organism Laterality: right Lung location: lower lobe of lung Qualified Code(s): J18.1 - Lobar pneumonia, unspecified organism (2) Hypertension Priority: Secondary Status: Chronic Comments: This remained stable on her home medications no medication changes were made with regards to the hypertension. Qualifiers: Hypertension type: essential hypertension Qualified Code(s): I10 - Essential (primary) hypertension (3) Diet-controlled diabetes mellitus Priority: Secondary Status: Chronic Comments: sHe did get sliding scale couple of times which is not unexpected given her IV Solu-Medrol doses. We will continue to have her watch her diet as an outpatient. (4) GERD (gastroesophageal reflux disease) Priority: Secondary Status: Chronic Comments: She was continued on her home medication that was not an issue during this hospitalization Qualifiers: Esophagitis presence: esophagitis presence not specified Qualified Code(s): K21.9 - Gastro-esophageal reflux disease without esophagitis (5) DVT prophylaxis Priority: Secondary Status: Acute Comments: She was on her home dose of Coumadin. Her INR did get a little bit elevated given the fact she was on Levaquin and she did have to have those held. Will have her repeat her INR (6) Atrial fibrillation Priority: Secondary Status: Chronic Comments: Maintenance rate controlled she was anticoagulated on Coumadin her INR did elevate due to the Levaquin. However lower her dose hold her Coumadin today and have her repeat her INR as an outpatient on November 25 Qualifiers: Atrial fibrillation type: chronic Qualified Code(s): I48.2 - Chronic atrial fibrillation (7) Chronic anticoagulation Priority: Secondary Status: Chronic (8) Vitamin D insufficiency Priority: Secondary Status: Chronic (9) Morbid obesity Priority: Secondary Status: Chronic Hospital course: Ms. Singh is a 73 year old female Who presented to the emergency room with nausea vomiting cough wheezing shortness of breath. She was found to have pneumonia. She was started on IV Levaquin Solu-Medrol due to her wheezing. She did respond nicely she was able to ambulate in the halls and get showered. She felt well enough to go home. She did require oxygen at a higher dose than what she is on at home she is on 2 L at home but required 3-4 here. We will send her home on her home dose of oxygen we will continue the Levaquin orally and prednisone orally as an outpatient. Her INR was elevated due to the Levaquin while she was an inpatient we will hold her dose of Coumadin today have her hold it tomorrow have her repeat her INR on November 25. She is anticoagulated due to chronic atrial fibrillation she remained in A. fib but she was rate controlled. Her hypertension was stable and in range. She was discharged home in a stable condition to follow-up in the office on November 26 Discharge discussed with: patient - Time Spent with Patient Total time spent providing and/or coordinating discharge services: - Discharge Medications Prescriptions: Levofloxacin [Levaquin] 500 mg PO DAILY #4 tablet PredniSONE [Deltasone] 60 mg PO DAILY #20 tablet Home Medications: Metoprolol [Lopressor] 50 mg PO BID 10/17/15 [History] Aspirin [Lo-Dose Aspirin EC] 81 mg PO DAILY 07/28/16 [History] Furosemide [Lasix] 80 mg PO DAILY 12/31/16 [History] Oxygen 2 l NS HS 03/10/17 [History] Anastrozole [Arimidex] 1 mg PO DAILY #90 tablet 05/28/17 [Rx] Omeprazole [PriLOSEC] 20 mg PO DAILY 06/23/17 [History] Lisinopril [Zestril] 20 mg PO QAM 10/08/17 [History] Acetaminophen [Tylenol Arthritis] 650 mg PO Q8H PRN 11/19/18 [History] Iron Polysaccharide Complex [Ferrex 150] 150 mg PO DAILY 11/19/18 [History] Potassium Chloride 20 meq PO BID 11/19/18 [History] Sertraline [Zoloft] 25 mg PO DAILY 11/19/18 [History] Warfarin [Coumadin] 3 mg PO 1800 11/19/18 [History] Acetaminophen [Tylenol] 650 mg PO Q6HR PRN tablet 11/23/18 [Rx] Anastrozole [Arimidex] 1 mg PO DAILY tablet 11/23/18 [Rx] Ipratropium/Albuterol Neb [Duoneb] 3 ml IH Q2HR PRN inhsol 11/23/18 [Rx] Ipratropium/Albuterol Neb [Duoneb] 3 ml IH QIDR inhsol 11/23/18 [Rx] Iron Polysaccharide Complex [Ferrex 150] 150 mg PO DAILY capsule 11/23/18 [Rx] Levofloxacin [Levaquin] 500 mg PO DAILY #4 tablet 11/23/18 [Rx] Potassium Chloride 20 meq PO BID tab.er.prt 11/23/18 [Rx] PredniSONE [Deltasone] 60 mg PO DAILY #20 tablet 11/23/18 [Rx] Sertraline [Zoloft] 25 mg PO DAILY tablet 11/23/18 [Rx] Vitamin B Complex/Vit C/Vit E [Stresstab] 1 each PO DAILY tablet 11/23/18 [Rx] Warfarin [Coumadin] 3 mg PO DAILY@1800 tablet 11/23/18 [Rx] Allergies/Adverse Reactions: Allergy/AdvReac Type Severity Reaction Status Date / Time cephalexin [From Keflex] Allergy Rash Verified 02/20/18 14:11 atorvastatin [From Lipitor] AdvReac Muscle Pain Verified 02/20/18 14:11 nifedipine [From Procardia] AdvReac Blurry Verified 02/20/18 14:11 Vision Date of admission: 11/19/18 19:38 Primary care physician: Nurys Nazario MD - Constitutional Vitals: Temp Pulse Resp BP Pulse Ox 98.1 F 86 16 139/76 94 11/23/18 11:33 11/23/18 11:33 11/23/18 11:33 11/23/18 11:33 11/23/18 11:33 General appearance: Present: mild distress, A&O X 3, obese, answers questions appropriately - Head Head exam: Present: atraumatic, normocephalic - Neck Neck exam general surgery: Present: supple, trachea midline - Respiratory Respiratory exam: Present: wheezes (in the right lower lobe, much improved otherwise cta) - Cardiovascular Cardiovascular exam: Present: RRR. Absent: systolic murmur - GI/Abdominal GI/Abdominal exam: Present: normal bowel sounds (very large difficult to examine but no change), no peritoneal signs. Absent: tenderness - Extremities Exam Extremities exam: Present: warm. Absent: pedal edema - Skin Skin exam: Present: dry, warm. Absent: rash - Patient Status Disposition: Home, Self-Care Condition: Good Overall status at discharge: patient is progressing back to baseline - Discharge Instructions Instructions: Atrial Fibrillation (DC), Pneumonia (DC) Follow Up With: Nurys Nazario MD [Primary Care Provider] - 11/26/18 9:00 am Additional Instructions: get your inr drawn on fri11/25/17. hold the coumadin tonight and lower your dose, since your inr is high - Diet and Activity Activity: wear oxygen at all times Diet: diabetic diet, low fat, low cholesterol, low salt diet - VTE Reasons for not Prescribing Prophylaxis: Not indicated-Anticoagulated or INR therapeutic
[2018-11-24] MEDS ORDERED: levoFLOXacin 750 MG TABLET PO SCH (09:00)
[2018-11-24] MEDS ORDERED: *HR* Warfarin 3 MG TABLET PO SCH (18:00)
== END 2018-11-23 15:45 | disposition home or self-care (01) | DRG 194 ==
LOC: EMEROOGRE 11:37 → INPGRE 11:37
PROVIDERS: ADMIT Family Medicine; ATTEND Family Medicine

== ENCOUNTER 2020-10-02 20:47 | Observation (INO) ==
[2020-10-02] MEDS ORDERED: Ondansetron ODT 4 MG TAB.RAPDIS SL STA (21:07)
[2020-10-02 21:22] LABS: Bilirubin,Urine Moderate (Negative); Blood,Urine Large (Negative); Clarity,Urine Slightly Cloudy (Clear); Color,Urine Dark Yellow (Yellow); Glucose,Urine (UA) Normal (Normal); Ketones,Urine Trace mg/dL (Negative); Leukocyte Esterase,Urine Small (Negative); Nitrite,Urine Negative (Negative); Protein,Urine >=300 mg/dL (Neg-Trace); Specific Gravity,Urine 1.025 (1.010-1.025)
[2020-10-02 21:24] LABS: Amorphous Sediment,Urine Few per hpf (None-Few); Bacteria,Urine Few per hpf (None-Few); Hyaline Casts,Urine Few per lpf (None Seen)
[2020-10-02 21:36] LABS: Basophils % 0.2 %; Hematocrit 36.8 % (35.3-44.9); Hemoglobin 11.4 g/dL (11.5-15.4); Immature Granulocytes % 0.6 % (0-4); Lymphocytes # 0.5 K/mcL (0.6-4.6); Mean Corpuscular Hemoglobin 28.1 pg (28.0-33.3); Mean Corpuscular Volume 90.6 fL (83.0-100.0); Mean Platelet Volume 10.8 fL (9.4-12.4); Monocytes # 1.8 K/mcL (0.0-1.3); Monocytes % 10.6 %; Platelet Count 258 K/mcL (140-400); Red Blood Count 4.06 M/mcL (3.82-4.97); Red Cell Distribution Width 14.2 % (11.5-14.5); Segmented Neutrophils % 85.6 %
[2020-10-02 21:37] LABS: Neutrophils # 14.6 K/mcL (1.6-8.9)
[2020-10-02 21:48] LABS: INR 5.4; Prothrombin Time 58.8 Seconds (9.4-12.1)
[2020-10-02] MEDS ORDERED: 0.9 % Sodium Chloride 500 ML IVC ONE (21:58)
[2020-10-02] MEDS ORDERED: Piperacillin/Tazobactam 3.375 GM in 0.9 % Sodium Chloride Mini Bag 100 ML IVPB ONE (22:03)
[2020-10-02 22:41] LABS: Albumin 3.6 g/dL (3.5-5.7); Albumin/Globulin Ratio 0.9 (1.1-2.2); Bilirubin,Total 1.1 mg/dL (0.3-1.0); Calcium 9.4 mg/dL (8.6-10.3); Globulin 4.1 g/dL (2.4-3.5); Potassium 4.1 mEq/L (3.5-5.1); Total Protein 7.7 g/dL (6.4-8.9)
[2020-10-02] MEDS ORDERED: 0.9 % Sodium Chloride 1,000 ML IVC SCH (22:45)
[2020-10-02] MEDS ORDERED: 0.9 % Sodium Chloride 1,000 ML IVC ONE (23:06)
[2020-10-03] MEDS ORDERED: Naloxone 0.4 MG/ML INJ IVP PRN ×2 (01:04→05:07)
[2020-10-03 01:43] LABS: Basophils % 0.2 %; Hematocrit 33.3 % (35.3-44.9); Hemoglobin 10.3 g/dL (11.5-15.4); Immature Granulocytes % 0.5 % (0-4); Lymphocytes # 0.7 K/mcL (0.6-4.6); Lymphocytes % 4.8 %; Mean Corpuscular HGB Conc 30.9 g/dL (31.6-35.5); Mean Corpuscular Hemoglobin 28.4 pg (28.0-33.3); Mean Corpuscular Volume 91.7 fL (83.0-100.0); Mean Platelet Volume 10.3 fL (9.4-12.4); Monocytes # 1.2 K/mcL (0.0-1.3); Monocytes % 8.2 %; Platelet Count 226 K/mcL (140-400); Red Blood Count 3.63 M/mcL (3.82-4.97); Red Cell Distribution Width 14.3 % (11.5-14.5); Segmented Neutrophils % 86.3 %
[2020-10-03 01:47] LABS: Neutrophils # 12.1 K/mcL (1.6-8.9)
[2020-10-03 01:54] LABS: INR 5.2; Prothrombin Time 56.6 Seconds (9.4-12.1)
[2020-10-03 01:55] LABS: Calcium 8.4 mg/dL (8.6-10.3); Potassium 3.9 mEq/L (3.5-5.1)
[2020-10-03] MEDS ORDERED: Ipratropium/Albuterol Neb 3 ML IH SCH (04:00)
[2020-10-03] MEDS: Torsemide 20 MG TABLET PO SCH ×2 (07:55→16:14)
[2020-10-03] MEDS: 0.9 % Sodium Chloride 1,000 ML IVC SCH ×2 (08:14→14:31)
[2020-10-03] MEDS: Ipratropium/Albuterol Neb 3 ML IH SCH ×3 (08:35→16:21)
[2020-10-03] MEDS ORDERED: Spironolactone 25 MG TABLET PO SCH ×2 (09:00)
[2020-10-03] MEDS ORDERED: lisinopriL 20 MG TABLET PO SCH ×2 (09:00)
[2020-10-03] MEDS ORDERED: Torsemide 20 MG TABLET PO SCH (09:00)
[2020-10-03] MEDS ORDERED: Anastrozole 1 MG TABLET PO SCH ×2 (09:00)
[2020-10-03] MEDS ORDERED: Folic Acid 1 MG TABLET PO SCH ×2 (09:00)
[2020-10-03] MEDS ORDERED: levoFLOXacin 500 MG/100 ML 500 MG/100 ML BAG IVPB ONE ×2 (09:30→10:00)
[2020-10-03 15:35] VITALS: BP 98/58
[2020-10-03 17:10] LABS: Mixed Venous Blood pCO2 58 mmHg (44-46); Mixed Venous Blood pH 7.35 pH Units (7.34-7.36); Mixed Venous Blood pO2 39 mmHg (35-45)
[2020-10-03 18:32] LABS: ABG Base Excess 6 mEq/L (-2 to 3); ABG HCO3 32 mEq/L (21-27); ABG Oxygen Saturation 94 % (95-98); ABG PCO2 52 mmHg (35-45); ABG PH 7.39 pH Units (7.32-7.45); ABG PO2 71 mmHg (85-104); ABG TCO2 33 mEq/L (20-26)
[2020-10-03 23:04] LABS: Acinetobacter baumannii by PCR Not Detected (Not Detect); Enterobacter cloacae Cmplx PCR Not Detected (Not Detect); Enterococcus by PCR Not Detected (Not Detect); Escherichia coli by PCR Not Detected (Not Detect); Klebsiella oxytoca by PCR Not Detected (Not Detect); Klebsiella pneumoniae by PCR Not Detected (Not Detect); Proteus by PCR DETECTED (Not Detect); Staphylococcus aureus by PCR Not Detected (Not Detect); Staphylococcus by PCR Not Detected (Not Detect); Streptococcus agalactiae(B)PCR Not Detected (Not Detect); Streptococcus by PCR Not Detected (Not Detect); Streptococcus pneumoniae PCR Not Detected (Not Detect); Streptococcus pyogenes (A) PCR Not Detected (Not Detect); blaKPC Carbapenem-Resist Gene Not Detected (Not Detect)
[2020-10-03 23:05] LABS: Candida albicans by PCR Not Detected (Not Detect); Candida glabrata by PCR Not Detected (Not Detect); Candida krusei by PCR Not Detected (Not Detect); Candida parapsilosis by PCR Not Detected (Not Detect); Candida tropicalis by PCR Not Detected (Not Detect); Pseudomonas aeruginosa by PCR Not Detected (Not Detect); Serratia marcescens by PCR Not Detected (Not Detect)
== END 2020-10-03 19:27 | disposition short-term general hospital (02) ==
LOC: INPGRE 20:47 → EMEROOGRE 20:47 → INPGRE 10-03 01:35
PROVIDERS: ADMIT Internal Medicine; ATTEND Internal Medicine